=== PATIENT | male | born 1955 | race African-American/Black ===

== ENCOUNTER 2016-08-01 08:47 | Emergency (ER) | payer BC ==
[2016-08-01] MEDS ORDERED: ASPIRIN 81 MG CHEW PO STA (09:07)
[2016-08-01] MEDS ORDERED: KETOROLAC 30 MG/ML 1 ML VIAL IVP STA (09:08)
--- NOTE | 2016-08-01 09:17 | ED ---
Chest Pain HPI - General Chief Complaint: Chest Pain Stated Complaint: chest pain Time Seen by Provider: 08/01/16 08:53 Source: patient, family, RN notes reviewed Mode of arrival: ambulatory Limitations: no limitations - History of Present Illness Initial Comments: This is a 60-year-old male with a history of prostate cancer states he had the onset of sharp left-sided chest pain the last 2 days. 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 He states it increases with coughing deep breathing or certain movements. Sharp and nonradiating. He points to the left upper chest wall. He's had no recent trauma no fevers chills sweats or phlegm production. No heart disease history he is a smoker. Is no other medical problems he states he did recently see his urologist and get a hormone injection. MD Complaint: chest pain - Related Data Home Medications Medication Instructions Recorded Confirmed Naproxen Sodium [Aleve] 440 mg PO HS PRN 07/13/15 08/01/16 Abiraterone Acetate [Zytiga] 250 mg PO DAILY 08/01/16 08/01/16 Atorvastatin [Lipitor] 10 mg PO DAILY 08/01/16 08/01/16 Calcium Carbonate/Vitamin D3 1 tab PO DAILY 08/01/16 08/01/16 [Caltrate 600 Plus D3 Tablet] predniSONE 5 mg PO BID 08/01/16 08/01/16 Previous Rx's Medication Instructions Recorded Ibuprofen [Motrin] 800 mg PO Q6HR PRN #20 tab 08/01/16 Allergies Allergy/AdvReac Type Severity Reaction Status Date / Time No Known Allergies Allergy Verified 08/01/16 09:30 Review of Systems ROS Statement: Those systems with pertinent positive or pertinent negative responses have been documented in the HPI. ROS Other: All systems not noted in ROS Statement are negative. EKG Findings - EKG Results: EKG: interpreted by ERMD, sinus rhythm (Sinus rhythm with a rate of 64. Interval 146 QRS duration 90 QT/QTc is 376/387 evidence of J-point elevation in the anterior leads) Past Medical History Past Medical History: Cancer, GERD/Reflux, Hyperlipidemia, Prostate Disorder Additional Past Medical History / Comment(s): CA of Prostate 3 years ago 2011 - pt had hormone shot from Dr Hussein 01/20/14. SL BLOOD IN STOOL. History of Any Multi-Drug Resistant Organisms: None Reported Past Surgical History: Orthopedic Surgery, Prostate Surgery Additional Past Surgical History / Comment(s): PROSTATE removed 2011. Rt knee surgery 2013 Past Anesthesia/Blood Transfusion Reactions: No Reported Reaction Smoking Status: Current every day smoker Past Alcohol Use History: Occasional Additional Past Alcohol Use History / Comment(s): SMOKED 30 YEARS, 1/2 PPD. PINT OF LIQUOR EST PER WK. Past Drug Use History: None Reported - Past Family History Mother Family Medical History: Cancer General Exam - General Exam Comments Initial Comments: This is a well-developed well-nourished awake alert oriented 3 male Limitations: no limitations General appearance: alert, in no apparent distress Head exam: Present: atraumatic, normocephalic, normal inspection Eye exam: Present: normal appearance, PERRL, EOMI. Absent: scleral icterus, conjunctival injection, periorbital swelling ENT exam: Present: normal exam, mucous membranes moist Neck exam: Present: normal inspection. Absent: tenderness, meningismus, lymphadenopathy Respiratory exam: Present: normal lung sounds bilaterally, chest wall tenderness (Reproducible tenderness palpation along the left upper costal sternal costochondral margins. No step-off or crepitation). Absent: respiratory distress, wheezes, rales, rhonchi, stridor Cardiovascular Exam: Present: regular rate, normal rhythm, normal heart sounds. Absent: systolic murmur, diastolic murmur, rubs, gallop, clicks GI/Abdominal exam: Present: soft, normal bowel sounds. Absent: distended, tenderness, guarding, rebound, rigid Extremities exam: Present: normal inspection, full ROM, normal capillary refill. Absent: tenderness, pedal edema, joint swelling, calf tenderness Back exam: Present: normal inspection Neurological exam: Present: alert, oriented X3, CN II-XII intact Psychiatric exam: Present: normal affect, normal mood Skin exam: Present: warm, dry, intact, normal color. Absent: rash Course Vital Signs 08/01/16 08/01/16 08/01/16 08:58 09:01 09:13 Temperature 98 F Pulse Rate 98 92 Pulse Rate [ 68 Bilateral Sitting Radial] Respiratory 20 15 Rate Blood Pressure 127/74 140/74 O2 Sat by Pulse 99 96 Oximetry 08/01/16 10:35 Temperature Pulse Rate 73 Pulse Rate [ Bilateral Sitting Radial] Respiratory 16 Rate Blood Pressure 125/88 O2 Sat by Pulse 98 Oximetry Chest Pain MDM - MDM I did review the x-rays and reports no acute findings. The patient is some improvement but still has reproducible chest pain. I had a long discussion with him and his regarding the findings patient will be discharged on anti- inflammatories is follow-up with his doctor return when necessary the presentation is consistent with chest wall pain/costochondritis. We also did discuss smoking cessation and the risks of smoking. The conversation lasted 3.1 minutes Disposition Clinical Impression: Chest wall syndrome, Costalchondritis Disposition: HOME SELF-CARE Condition: Good Instructions: Costochondritis (ED) Prescriptions: Ibuprofen [Motrin] 800 mg PO Q6HR PRN #20 tab PRN Reason: Pain
[2016-08-01 09:36] LABS: Basophils % (A) 0 %; CHCM 32.7; Eosinophils # (A) 0.1 k/uL (0-0.7); Eosinophils % (A) 1 %; HCT 39.2 % (39.0-53.0); HDW 2.41; HGB 12.8 gm/dL (13.0-17.5); Luc # (Auto) 0.23; Luc % (Auto) 2; Lymphocytes # (A) 2.8 k/uL (1.0-4.8); Lymphocytes % (A) 24 %; MCHC 32.6 g/dL (31.0-37.0); MCV 92.3 fL (80.0-100.0); Mean Platelet Volume 6.6; Monocytes # (A) 0.5 k/uL (0-1.0); Monocytes % (A) 4 %; Neutrophils # (A) 8.1 k/uL (1.3-7.7); Neutrophils % (A) 69 %; RBC 4.25 m/uL (4.30-5.90); RDW 13.9 % (11.5-15.5); WBC 11.7 k/uL (3.8-10.6); WBC (Perox) 12.21
[2016-08-01 09:49] LABS: Partial Thromboplastin Time 26.5 sec (22.0-30.0); Prothrombin Time 10.2 sec (9.0-12.0)
[2016-08-01 09:59] LABS: ALT 28 U/L (21-72); AST 24 U/L (17-59); Alkaline Phosphatase 87 U/L (38-126); Amylase 65 U/L (30-110); Anion Gap 12 mmol/L; Blood Urea Nitrogen 27 mg/dL (9-20); Calcium 10.6 mg/dL (8.4-10.2); Carbon Dioxide 23 mmol/L (22-30); Chloride 109 mmol/L (98-107); Glucose 84 mg/dL (74-99); Magnesium 1.7 mg/dL (1.6-2.3); Non-African American GFR(MDRD) >60 (>60 ml/min/1.73 sqM); Potassium 4.4 mmol/L (3.5-5.1); Sodium 144 mmol/L (137-145); Total Bilirubin 0.9 mg/dL (0.2-1.3); Total Protein 7.3 g/dL (6.3-8.2)
[2016-08-01 10:01] LABS: Creatine Kinase 232 U/L (55-170)
--- NOTE | 2016-08-01 10:01 | XR ---
EXAMINATION TYPE: XR chest 2V DATE OF EXAM: 08/01/2016 9:48 AM COMPARISON: Right ribs 04 March 2016, CT chest 28 Sep 2015 HISTORY: Chest pain TECHNIQUE: Frontal and lateral views of the chest are obtained on 3 images. FINDINGS: There is no focal air space opacity, pleural effusion, or pneumothorax seen. The cardiac silhouette size is within normal limits. Prominent lung volumes compatible with COPD. Apical bullous disease present bilaterally. There are overlying cardiac leads. The osseous structures are intact. IMPRESSION: No acute cardiopulmonary process.
[2016-08-01 10:15] LABS: Troponin I <0.012 ng/mL (0.000-0.034)
[2016-08-01 10:26] LABS: Creatine Kinase MB 3.4 ng/mL (0.0-2.4)
[2016-08-01] MEDS ORDERED: SODIUM CHLORIDE 0.9% 1,000 ML IV STA (10:30)
[2016-08-01 10:36] VITALS: RESP 16
[2016-08-01 11:36] VITALS: BP 149/72; PULSE 69; TEMP 98.7
== END 2016-08-01 11:36 | disposition home or self-care (01) ==
LOC: EC 08:47
DX: M94.0 Chondrocostal junction syndrome [Tietze] (principal); E78.5 Hyperlipidemia, unspecified; F17.200 Nicotine dependence, unspecified, uncomplicated; Z79.899 Other long term (current) drug therapy; Z85.46 Personal history of malignant neoplasm of prostate; Z90.79 Acquired absence of other genital organ(s)
CPT/HCPCS: 36415; 93005; 85379; 83880; 80053; 82150; 82550; 82553; 83690; 83735; 84484; 85025; 85610; 85730; 71020; 99285; 96374; 96361; J1885

== ENCOUNTER → 2016-11-07 | Outpatient (CLI) | payer BC ==
--- NOTE | 2016-11-07 09:17 | CT ---
EXAMINATION TYPE: CT chest, abdomen w con DATE OF EXAM: 11/07/2016 COMPARISON: Previous study dated 09/28/1960. HISTORY: Patient has no complaints at time of service. Abnormal CXR at doctor's office. CT DLP: 328.3 mGycm Automated exposure control for dose reduction was used. CONTRAST: CT scan of the chest is performed with IV Contrast, patient injected with 100 mL of Omnipaque 300. FINDINGS: There are bullous changes in the apices, greater on the right than the left. There is a que stionable 3.6 mm lesion in the apical posterior segment of the left upper lobe, best seen on image 13 . No other parenchymal lesions are seen. Low-density lesion along the right hemidiaphragm has decreased in size from 7.3 x 4.4 x 7.4 cm to 5 x 2.9 x 5.2 cm. On today's examination peripheral enhancement. There is some internal vascularity. There is bilateral gynecomastia. There is no significant axillary, mediastinal or hilar adenopathy. There is no pleural or pericardial fluid. The heart is not enlarged. Within the abdomen, the liver, spleen and gallbladder are normal. Both adrenal glands are normal. Both kidneys demonstrate function and appear morphologically normal. The pancreas is unremarkable. The infrarenal abdominal aorta is aneurysmal measuring 3.3 cm. There is mild hypertrophic spondylosis within the spine. IMPRESSION: 1. CONTINUING REGRESSION OF THE PATIENT'S LOW ATTENUATING LESION AT THE RIGHT LUNG BASE. 2. EMPHYSEMATOUS CHANGES WITHIN THE LUNGS. 3. 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 4. BILATERAL GYNECOMASTIA. 5. INFRARENAL ABDOMINAL AORTIC ANEURYSM. 6. DEGENERATIVE CHANGES WITHIN THE SPINE.
== END | disposition home or self-care (01) ==
LOC: RADCTMAIN 08:35
PROVIDERS: ATTEND Internal Medicine Critical Care Medicine
DX: J43.9 Emphysema, unspecified (principal); R91.1 Solitary pulmonary nodule; N62 Hypertrophy of breast
CPT/HCPCS: 71260; Q9967

== ENCOUNTER → 2017-02-20 | Outpatient (CLI) | payer BC ==
--- NOTE | 2017-02-20 14:16 | NM ---
EXAMINATION TYPE: NM bone scan whole body DATE OF EXAM: 02/20/2017 COMPARISON: 02/16/2016 HISTORY: Prostate cancer Delayed whole-body scanning was performed following the injection of 26.9 mCi Tc 99m MDP. Images acq uired 3 hours post injection. FINDINGS: There now is extensive abnormal uptake throughout the rib cage, left femur, pelvic bones, a nd vertebral column. Also suspicious for metastases. Abnormal uptake involving the calvarium is nonspecific. Correlate with x-ray. Abnormal uptake involv ing the shoulder may be post arthritic although metastases not excluded. IMPRESSION: Findings suspicious for diffuse metastases.
== END | disposition home or self-care (01) ==
LOC: RADNMMAIN 10:19
PROVIDERS: ATTEND Urology
DX: C61 Malignant neoplasm of prostate (principal)
CPT/HCPCS: 78306; A9503

== ENCOUNTER → 2017-05-12 | Outpatient (CLI) | payer BC ==
[2017-05-12 15:26] LABS: Blood Urea Nitrogen 22 mg/dL (9-20)
--- NOTE | 2017-05-12 17:21 | CT ---
EXAMINATION TYPE: CT ChestAbdPelvis w con DATE OF EXAM: 05/12/2017 COMPARISON: 11/07/2016, 03/25/2016 HISTORY: Follow up for prostate CA. CT DLP: 1265 mGycm Automated exposure control for dose reduction was used. CONTRAST: CT scan of the chest, abdomen and pelvis is performed with Oral Contrast and with IV Contrast, patien t injected with 100 mL of Omnipaque 300. FINDINGS: LUNGS: Bullous changes are noted involving the lung apices greater on the right. No pneumothorax or c onsolidation. No pleural effusion. No focal pneumonia. There is reduction in the right pleural-based mass which measures 2.5 x 2.1 cm and previously measured 5 x 2.9 cm. MEDIASTINUM: There are no greater than 1 cm hilar or mediastinal lymph nodes. No pericardial effusi on is seen. OTHER: No additional significant abnormality is seen. LIVER/GB: No significant abnormality is appreciated. PANCREAS: No significant abnormality is seen. SPLEEN: No significant abnormality is seen. ADRENALS: No significant abnormality is seen. KIDNEYS: No significant abnormality is seen. BOWEL: No significant abnormality is seen. LYMPH NODES: There is pathologic adenopathy in the retroperitoneum and periaortic region with the lar gest lymph node on the right measuring 1.1 cm and on the left measuring 1.3 cm. Within the pelvis the re remains pathologic adenopathy particularly against the right pelvic sidewall with the largest lymp h node measuring a short axis of 1.7 cm. This is reduced in size relative measured 2.4 cm. Additional small lymph nodes are seen bilaterally in the iliac chain. OSSEOUS STRUCTURES: There are diffuse sclerotic changes involving the visualized osseous structures c ompatible with widespread bony metastases. OTHER: There is ectasia of the aorta measures a maximal dimension of 2.9 cm. Ectasia of the proximal iliac vasculature also noted. IMPRESSION: 1. Widespread bony metastasis involving virtually every osseous structure. 2. Pelvic sidewall adenopathy is reduced in size from previous exam. 3. Retroperitoneal adenopathy is stable. 4. Reduction in the right-sided lower lobe pleural-based mass which measures 2.5 x 2 cm and previousl y measured 5 x 2.9 cm.
== END | disposition home or self-care (01) ==
LOC: RADCTMAIN 14:52
PROVIDERS: ATTEND Internal Medicine Hematology & Oncology
DX: C79.51 Secondary malignant neoplasm of bone (principal); C61 Malignant neoplasm of prostate; R59.0 Localized enlarged lymph nodes; J98.4 Other disorders of lung
CPT/HCPCS: 82565; 84520; 71260; 74177; 36415; Q9967

== ENCOUNTER → 2017-06-03 | Outpatient (CLI) | payer BC ==
--- NOTE | 2017-06-03 16:04 | NM ---
EXAMINATION TYPE: NM bone scan whole body DATE OF EXAM: 06/03/2017 COMPARISON: Prior bone scan 02/20/2017, CT chest abdomen pelvis 05/12/2017 HISTORY: Prostate cancer Delayed whole-body scanning was performed following the injection of 26.4 mCi Tc 99m MDP. Images acq uired 3 hours post injection. FINDINGS: Diffuse areas of increased radio pharmaceutical uptake are somewhat less conspicuous, less well-defin ed. Sacral uptake may be a slight increased activity is compared to prior. Soft tissue uptake is not well seen, findings could be indicative of SuperScan. IMPRESSION: Metastatic disease as described, findings compatible with SuperScan.
== END | disposition home or self-care (01) ==
LOC: RADNMMAIN 10:21
PROVIDERS: ATTEND Internal Medicine Hematology & Oncology
DX: Z03.89 Encounter for observation for other suspected diseases and conditions ruled out (principal); C61 Malignant neoplasm of prostate
CPT/HCPCS: 78306; A9503

== ENCOUNTER 2017-07-03 10:18 | Emergency (ER) | payer BC, OTHER ==
[2017-07-03] MEDS ORDERED: RX INFO: IV CONTRAST WAS GIVEN 1 EACH MISC MISCELLANE PRN (10:43)
[2017-07-03] MEDS ORDERED: HYDROmorphone 0.5 MG/0.5 ML SYRINGE IVP STA ×2 (10:43→11:29)
[2017-07-03] MEDS ORDERED: SODIUM CHLORIDE 0.9% 1,000 ML IV STA (10:43)
--- NOTE | 2017-07-03 10:59 | ED ---
General Adult HPI - General Chief complaint: Neck Pain/Injury Stated complaint: Back pain Time Seen by Provider: 07/03/17 10:30 Source: patient, RN notes reviewed Mode of arrival: ambulatory Limitations: no limitations - History of Present Illness Initial comments: 61-year-old male presents to the emergency department with a chief complaint of back pain and abdominal pain. He's had this for about 3 days. He has a history of prostate cancer that has metastases to the bone. He states she's never had pain like this associated with his metastases. He went to [facility] and they started him on muscle relaxers and steroids. He states that his pain just keeps continuing in the medications that they gave him do not seem to be helping them. They were concerned due to the patient's continued pain so he thought that he should be seen. He states any movement or touch seems to make it worse. He states he goes from the left to right in the lower abdomen and back. He denies any changes in urination.Patient denies any recent fever, chills, shortness of breath, chest pain, nausea vomiting, numbness or tingling, dysuria or hematuria, constipation or diarrhea, headaches or visual changes, or any other current symptoms. - Related Data Home Medications Medication Instructions Recorded Confirmed Cyclobenzaprine [Flexeril] 10 mg PO TID PRN 07/03/17 07/03/17 Multivitamins, Thera [Multivitamin 1 tab PO DAILY 07/03/17 07/03/17 (formulary)] predniSONE 20 mg PO BID 07/03/17 07/03/17 Previous Rx's Medication Instructions Recorded Hydrocodone/Acetaminophen [Leander 1 each PO Q6HR PRN #20 tab 07/03/17 5-325] Allergies Allergy/AdvReac Type Severity Reaction Status Date / Time No Known Allergies Allergy Verified 07/03/17 10:53 Review of Systems ROS Statement: Those systems with pertinent positive or pertinent negative responses have been documented in the HPI. ROS Other: All systems not noted in ROS Statement are negative. Past Medical History Past Medical History: Cancer, GERD/Reflux, Hyperlipidemia, Prostate Disorder Additional Past Medical History / Comment(s): CA of Prostate 3 years ago 2011 - pt had hormone shot from Dr Hussein 01/20/14. chemo therapy last treatment . History of Any Multi-Drug Resistant Organisms: None Reported Past Surgical History: Orthopedic Surgery, Prostate Surgery Additional Past Surgical History / Comment(s): PROSTATE removed 2011. Rt knee surgery 2013 Past Anesthesia/Blood Transfusion Reactions: No Reported Reaction Past Psychological History: No Psychological Hx Reported Smoking Status: Current every day smoker Past Alcohol Use History: Occasional Past Drug Use History: None Reported - Past Family History Mother Family Medical History: Cancer General Exam - General Exam Comments Initial Comments: General: The patient is awake and alert, in no distress, and does not appear acutely ill. Eye: Pupils are equal, round and reactive to light, extra-ocular movements are intact; there is normal conjunctiva bilaterally. No signs of icterus. Ears, nose, mouth and throat: There are moist mucous membranes. Neck: The neck is supple, there is no tenderness. Cardiovascular: There is a regular rate and rhythm. No murmur, rub or gallop is appreciated. Respiratory: Lungs are clear to auscultation, respirations are non-labored, breath sounds are equal. No wheezes, stridor, rales, or rhonchi. Gastrointestinal: Soft, non-distended, some lower quadrant tenderness of the abdomen without masses or organomegaly noted. There is no rebound or guarding present. No CVA tenderness. Bowel sounds are unremarkable. Back: There is no tenderness to palpation in the midline. There is no obvious deformity. No rashes noted. Musculoskeletal: Normal ROM, no tenderness, There is no pedal edema. There is no calf tenderness or swelling. Sensation intact. Pulses equal bilaterally 2+. Neurological: CN II-XII intact, There are no obvious motor or sensory deficits. Coordination appears grossly intact. Speech is normal. Skin: Skin is warm and dry and no rashes or lesions are noted. Psychiatric: Cooperative, appropriate mood & affect, normal judgment. Limitations: no limitations Course Vital Signs 07/03/17 07/03/17 07/03/17 10:23 11:40 12:49 Temperature 98.6 F Pulse Rate 96 88 89 Respiratory 18 16 16 Rate Blood Pressure 124/68 138/72 164/79 O2 Sat by Pulse 98 97 98 Oximetry Medical Decision Making - Medical Decision Making 61-year-old male presents for back pain. This time patient's lab work and CT was reviewed. He is currently on steroids which is most likely why he is elevated white blood cell. CAT scan is showing bony metastases which the patient doesn't know about. Dr. Carballo was contacted by Dr. vincent and is agreement discharged home on additional pain control. At this time we will start patient pain meds for home. We did discuss follow-up we discussed return parameters all questions. Patient stated the understood and in agreement with management this plan. All questions have been answered. They will be discharged. - Lab Data Result diagrams: 07/03/17 11:00 07/03/17 11:00 Lab Results 07/03/17 07/03/17 07/03/17 Range/Units 11:00 11:00 11:00 WBC 16.2 H (3.8-10.6) k/uL RBC 3.15 L (4.30-5.90) m/uL Hgb 8.6 L (13.0-17.5) gm/dL Hct 26.9 L (39.0-53.0) % MCV 85.4 (80.0-100.0) fL MCH 27.3 (25.0-35.0) pg MCHC 31.9 (31.0-37.0) g/dL RDW 18.3 H (11.5-15.5) % Plt Count 353 (150-450) k/uL Neutrophils % (Manual) 80 % Band Neutrophils % 2 % Lymphocytes % (Manual) 11 % Monocytes % (Manual) 7 % Metamyelocytes % 2 % Neutrophils # (Manual) 13.20 H (1.3-7.7) k/uL Lymphocytes # (Manual) 1.78 (1.0-4.8) k/uL Monocytes # (Manual) 1.13 H (0-1.0) k/uL Metamyelocytes # (Man) 0.32 H (0) k/uL Nucleated RBCs 2 H (0-0) /100 WBC Hypochromasia Slight Poikilocytosis Slight Anisocytosis Slight PT (9.0-12.0) sec INR (<1.2) APTT (22.0-30.0) sec Sodium 141 (137-145) mmol/L Potassium 4.3 (3.5-5.1) mmol/L Chloride 110 H (98-107) mmol/L Carbon Dioxide 22 (22-30) mmol/L Anion Gap 9 mmol/L BUN 12 (9-20) mg/dL Creatinine 0.70 (0.66-1.25) mg/dL Est GFR (MDRD) Af Amer >60 (>60 ml/min/1.73 sqM) Est GFR (MDRD) Non-Af >60 (>60 ml/min/1.73 sqM) Glucose 114 H (74-99) mg/dL Plasma Lactic Acid Keith 1.1 (0.7-2.0) mmol/L Calcium 9.0 (8.4-10.2) mg/dL Total Bilirubin 0.4 (0.2-1.3) mg/dL AST 57 (17-59) U/L ALT 43 (21-72) U/L Alkaline Phosphatase 226 H (38-126) U/L Total Protein 6.6 (6.3-8.2) g/dL Albumin 3.7 (3.5-5.0) g/dL Amylase 47 (30-110) U/L Lipase 48 (23-300) U/L Urine Color Urine Appearance (Clear) Urine pH (5.0-8.0) Ur Specific [place] (1.001-1.035) Urine Protein (Negative) Urine Glucose (UA) (Negative) Urine Ketones (Negative) Urine Blood (Negative) Urine Nitrite (Negative) Urine Bilirubin (Negative) Urine Urobilinogen (<2.0) mg/dL Ur Leukocyte Esterase (Negative) 07/03/17 07/03/17 Range/Units 11:00 11:00 WBC (3.8-10.6) k/uL RBC (4.30-5.90) m/uL Hgb (13.0-17.5) gm/dL Hct (39.0-53.0) % MCV (80.0-100.0) fL MCH (25.0-35.0) pg MCHC (31.0-37.0) g/dL RDW (11.5-15.5) % Plt Count (150-450) k/uL Neutrophils % (Manual) % Band Neutrophils % % Lymphocytes % (Manual) % Monocytes % (Manual) % Metamyelocytes % % Neutrophils # (Manual) (1.3-7.7) k/uL Lymphocytes # (Manual) (1.0-4.8) k/uL Monocytes # (Manual) (0-1.0) k/uL Metamyelocytes # (Man) (0) k/uL Nucleated RBCs (0-0) /100 WBC Hypochromasia Poikilocytosis Anisocytosis PT 9.7 (9.0-12.0) sec INR 1.0 (<1.2) APTT 23.1 (22.0-30.0) sec Sodium (137-145) mmol/L Potassium (3.5-5.1) mmol/L Chloride (98-107) mmol/L Carbon Dioxide (22-30) mmol/L Anion Gap mmol/L BUN (9-20) mg/dL Creatinine (0.66-1.25) mg/dL Est GFR (MDRD) Af Amer (>60 ml/min/1.73 sqM) Est GFR (MDRD) Non-Af (>60 ml/min/1.73 sqM) Glucose (74-99) mg/dL Plasma Lactic Acid Keith (0.7-2.0) mmol/L Calcium (8.4-10.2) mg/dL Total Bilirubin (0.2-1.3) mg/dL AST (17-59) U/L ALT (21-72) U/L Alkaline Phosphatase (38-126) U/L Total Protein (6.3-8.2) g/dL Albumin (3.5-5.0) g/dL Amylase (30-110) U/L Lipase (23-300) U/L Urine Color Yellow Urine Appearance Clear (Clear) Urine pH 5.5 (5.0-8.0) Ur Specific [place] 1.037 H (1.001-1.035) Urine Protein Trace H (Negative) Urine Glucose (UA) Negative (Negative) Urine Ketones Negative (Negative) Urine Blood Negative (Negative) Urine Nitrite Negative (Negative) Urine Bilirubin Negative (Negative) Urine Urobilinogen <2.0 (<2.0) mg/dL Ur Leukocyte Esterase Negative (Negative) Disposition Clinical Impression: Bony metastasis, Back pain Disposition: HOME SELF-CARE Condition: Stable Instructions: Acute Low Back Pain (ED) Additional Instructions: Please use medication as discussed. Please follow up with family doctor if symptoms have not improved over the next two days. Please return to the emergency room if your symptoms increase or worsen or for any other concerns. Prescriptions: Hydrocodone/Acetaminophen [Leander 5-325] 1 each PO Q6HR PRN #20 tab PRN Reason: Pain Referrals: Shayna De MD [Primary Care Provider] - 1-2 days Time of Disposition: 14:51
[2017-07-03 11:32] LABS: ALT 43 U/L (21-72); AST 57 U/L (17-59); Albumin 3.7 g/dL (3.5-5.0); Alkaline Phosphatase 226 U/L (38-126); Amylase 47 U/L (30-110); Anion Gap 9 mmol/L; Blood Urea Nitrogen 12 mg/dL (9-20); Carbon Dioxide 22 mmol/L (22-30); Chloride 110 mmol/L (98-107); Glucose 114 mg/dL (74-99); Lipase 48 U/L (23-300); Potassium 4.3 mmol/L (3.5-5.1); Sodium 141 mmol/L (137-145); Total Bilirubin 0.4 mg/dL (0.2-1.3); Total Protein 6.6 g/dL (6.3-8.2)
[2017-07-03 11:41] VITALS: RESP 16
[2017-07-03 11:43] LABS: Partial Thromboplastin Time 23.1 sec (22.0-30.0); Prothrombin Time 9.7 sec (9.0-12.0)
[2017-07-03 12:03] LABS: Anisocytosis Slight; HCT 26.9 % (39.0-53.0); HGB 8.6 gm/dL (13.0-17.5); Hypochromasia Slight; MCH 27.3 pg (25.0-35.0); MCHC 31.9 g/dL (31.0-37.0); MCV 85.4 fL (80.0-100.0); Mean Platelet Volume 6.9; Platelet Count 353 k/uL (150-450); Poikilocytosis Slight; RBC 3.15 m/uL (4.30-5.90); RDW 18.3 % (11.5-15.5)
--- NOTE | 2017-07-03 12:20 | CT ---
EXAMINATION TYPE: CT abdomen pelvis w con DATE OF EXAM: 07/03/2017 COMPARISON: May 12, 2017 HISTORY: Patient complains of generalized pelvic pain. History of prostate carcinoma CT DLP: 600.8 mGycm CONTRAST: CT scan of the abdomen and pelvis is performed without Oral Contrast and with IV Contrast, patient in jected with 100 mL of Omnipaque 300. FINDINGS: LUNG BASES-: Right basilar pleural-based mass measures 3.4 x 1.2 cm versus 2.5 x 2.0 cm previously. LIVER/GB: No calcified gallstones. There is evidence of hepatomegaly. Areas of mildly heterogenous enhancement within the liver are nonspecific. No space occupying hepatic lesion. Biliary tree is of normal caliber. PANCREAS: No inflammation. No distinct mass. SPLEEN: No splenic enlargement. No lesion seen. ADRENALS: No nodule. No thickening. KIDNEYS/BLADDER: No hydronephrosis. No nephrolithiasis. No distinct solid renal mass. Cyst upper p ole left kidney. Small hiatal hernia noted. Renal vascular calcifications. Urinary bladder grossly un remarkable. BOWEL: Normal appendix. Normal bowel caliber. No inflammation. GENITAL ORGANS: No gross abnormality. LYMPH NODES: Stable periaortic adenopathy and pelvic sidewall adenopathy. AORTA: Infrarenal abdominal aortic aneurysm measuring 3.2 cm. Ectasia of the common iliac arteries. OSSEOUS STRUCTURES: Diffuse blastic metastases seen involving virtually all osseous structures within the [id number]. OTHER: No significant additional abnormality is seen. IMPRESSION: 1. No acute process identified at this time. 2. Diffuse blastic bony metastases. 3. Essentially stable pleural-based mass right lower lobe. 4. Hepatomegaly with mild heterogenous enhancement of the liver. 5. Pelvic sidewall adenopathy is stable. Para-aortic adenopathy is stable as well.
[2017-07-03] MEDS ORDERED: MORPHINE SULFATE 4 MG/ML SYRINGE IVP STA ×3 (12:22→14:58)
[2017-07-03 12:28] LABS: Band Neutrophils % 2 %; Lymphocytes # (M) 1.78 k/uL (1.0-4.8); Metamyelocytes # (M) 0.32 k/uL (0); Metamyelocytes % 2 %; Monocytes # (M) 1.13 k/uL (0-1.0); Neutrophils % (M) 80 %; Nucleated Red Blood Cells 2 /100 WBC (0-0); Total Cells Counted 200; WBC 16.2 k/uL (3.8-10.6)
[2017-07-03 13:02] LABS: Appearance,Urine Clear (Clear); Bilirubin,Urine Negative (Negative); Blood,Urine Negative (Negative); Color,Urine Yellow; Glucose,Urine (UA) Negative (Negative); Ketones,Urine Negative (Negative); Leukocyte Esterase,Urine Negative (Negative); PH, Urine 5.5 (5.0-8.0); Protein,Urine Trace (Negative); Specific Gravity,Urine 1.037 (1.001-1.035); Urobilinogen,Urine <2.0 mg/dL (<2.0)
[2017-07-03] MEDS ORDERED: MORPHINE SULFATE 2 MG/ML SYRINGE IVP STA (14:56)
[2017-07-03 15:14] VITALS: BP 145/74; PULSE 93; TEMP 97.4
== END 2017-07-03 15:13 | disposition home or self-care (01) ==
LOC: EC 10:18
DX: C79.51 Secondary malignant neoplasm of bone (principal); M54.9 Dorsalgia, unspecified; Z85.46 Personal history of malignant neoplasm of prostate; F17.200 Nicotine dependence, unspecified, uncomplicated; Z79.52 Long term (current) use of systemic steroids; Z90.79 Acquired absence of other genital organ(s); Z92.21 Personal history of antineoplastic chemotherapy
CPT/HCPCS: 99284 ×2; 96374 ×2; 96375 ×2; 96376 ×3; 96361 ×2; 36415; 80053; 82150; 83605; 83690; 85025; 85610; 85730; 81003; 87040; 87086; 74177; J2270 ×2; Q9967; J1170

== ENCOUNTER → 2017-07-10 | Outpatient (CLI) | payer BC ==
--- NOTE | 2017-07-10 09:57 | MR ---
EXAMINATION TYPE: MR pelvis wo con DATE OF EXAM: 07/10/2017 COMPARISON: CT scan 07/04/2007 HISTORY: Prostate cancer and pelvic pain Standard multiplanar, multisequence MRI departmental protocol Multiplanar, multisequence images of the pelvis were acquired. FINDINGS: There is diffuse abnormal signal replacement of the marrow within all structures visualized with the most marked findings involving pelvic bones with near complete replacement compatible with widespread bony metastasis. There are stable appearing pelvic adenopathy along the sidewall measuring a short axis on the right o f 1.7 cm and measuring short axis on the left of 1.2 cm. The bladder is decompressed and limited in evaluation. No obvious abnormality noted. Findings suggest mattie of previous prostatectomy noted. No abnormal free fluid. No soft tissue mass. There is a 3 cm infrarenal abdominal aortic aneurysm. Fi ndings stable. IMPRESSION: 1. Diffuse marrow replacement of all the visualized osseous structures with the most marked findings involving the pelvic bones which demonstrate near complete replacement compatible with widespread bon y metastases. 2. Pelvic sidewall adenopathy stable. 3. 3 cm infrarenal abdominal aortic aneurysm stable.
== END ==
LOC: RADMRIMAIN 07:56
PROVIDERS: ATTEND Internal Medicine Hematology & Oncology
DX: C61 Malignant neoplasm of prostate (principal); I71.4 Abdominal aortic aneurysm, without rupture
CPT/HCPCS: 72195

== ENCOUNTER → 2017-07-11 | Outpatient (CLI) | payer BC ==
--- NOTE | 2017-07-11 23:35 | MR ---
EXAMINATION TYPE: MR brain/lspine wo/w con DATE OF EXAM: 07/11/2017 COMPARISON: NONE HISTORY: Back pain, Hx of Prostate CA 10years ago headache CONTRAST: Standard multiplanar, multisequence MRI departmental protocol utilizing 7.5 mL intravenous Gadavist g adolinium contrast. FINDINGS: Brain There is mild cerebral atrophy appropriate for age. There is no mass effect nor midline shift. There is no sign of intracranial hemorrhage. Ventricles have normal size. There is no evidence of cortical infarct. The brainstem is intact. Corpus callosum is intact. There is no evidence of a sellar mass. T he calvarium appears intact. The contrast images show no pathologic enhancement. Lumbar spine. The lumbar vertebra have normal alignment. There is mild narrowing of lumbar disc spaces at L3-4 L4-5 . Lumbar nerve roots appear normal. There is no compression fracture. The neural foramina are fairly well-maintained. There is epidural fat in the spinal canal and some lipomatosis. The posterior elemen ts are intact. I see no focal bone destruction. There are however multiple areas of slight ring enhan cement involving the lumbar vertebra and first and second sacral vertebra. There is no lumbar paraspi nal mass. Posterior elements appear intact. There appears to be also some ring-enhancing lesion in th e right ilium. IMPRESSION: Brain MR scan of the brain is within normal limits. No evidence of metastatic disease. Lumbar spine. There is epidural lipomatosis and narrowing of the spinal canal at the L4-L5 level. No compression fr acture. There are multiple areas that appear to be ring-enhancing bony lesions within the lumbar vert ebral bodies and also S1 and S2 and the right ilium suggestive of metastatic disease. This is also co nsistent with the findings on the recent CT scan of 07/03/2017 that shows extensive osteoblastic change . There is a relative spinal stenosis at L5 level due to the epidural fat.
== END | disposition home or self-care (01) ==
LOC: RADMRIMAIN 18:37
PROVIDERS: ATTEND Internal Medicine Hematology & Oncology
DX: M48.061 Spinal stenosis, lumbar region without neurogenic claudication (principal); E88.2 Lipomatosis, not elsewhere classified; C61 Malignant neoplasm of prostate; G51.3 Clonic hemifacial spasm
CPT/HCPCS: 70553; 72158; A9581

== ENCOUNTER 2017-07-23 08:31 | Inpatient (IN) | payer BC ==
[2017-07-23] MEDS ORDERED: SODIUM CHLORIDE 0.9% 1,000 ML IV STA (09:07)
[2017-07-23] MEDS ORDERED: ONDANSETRON 4 MG/2 ML VIAL IVP STA (09:19)
[2017-07-23] MEDS ORDERED: MORPHINE SULFATE 4 MG/ML SYRINGE IVP STA ×2 (09:19→12:25)
[2017-07-23] MEDS ORDERED: MORPHINE SULFATE/PF 10MG/10ML VL IVP STA ×3 (09:21→13:01)
[2017-07-23 09:45] LABS: Albumin 2.8 g/dL (3.5-5.0); Calcium 8.2 mg/dL (8.4-10.2); Potassium 5.2 mmol/L (3.5-5.1); Total Bilirubin 0.7 mg/dL (0.2-1.3); Total Protein 5.3 g/dL (6.3-8.2)
[2017-07-23 09:51] LABS: Anisocytosis Moderate; HCT 29.8 % (39.0-53.0); HGB 9.6 gm/dL (13.0-17.5); Hypochromasia Slight; MCH 26.8 pg (25.0-35.0); MCHC 32.1 g/dL (31.0-37.0); MCV 83.5 fL (80.0-100.0); Mean Platelet Volume 7.4; Microcytosis Slight; Poikilocytosis Slight; RBC 3.57 m/uL (4.30-5.90); RDW 20.2 % (11.5-15.5)
--- NOTE | 2017-07-23 09:51 | XR ---
Abdomen HISTORY: Pain, nausea and vomiting, prostate cancer Frontal view of the abdomen submitted on 2 images, correlation CT abdomen pelvis 07/03/2017 Bones appear somewhat sclerotic in the pelvis and spine. Lung bases are clear. Multiple air-fluid lev els are present without bowel distention. Probable vascular calcifications are noted. IMPRESSION: Findings could represent enteritis or ileus, follow-up as indicated. Metastatic disease t o the bones.
[2017-07-23 10:09] LABS: Platelet Count 158 k/uL (150-450)
--- NOTE | 2017-07-23 10:33 | ED ---
Abdominal Pain HPI <AustinCarmine - Last Filed: 07/23/17 13:58> - General Source: patient, RN notes reviewed, old records reviewed Mode of arrival: wheelchair Limitations: no limitations <Meredith Simon - Last Filed: 07/23/17 14:13> - General Chief Complaint: Abdominal Pain Stated Complaint: abdominal, back pain, loss of hearing in rt ear Time Seen by Provider: 07/23/17 08:57 - History of Present Illness Initial Comments: This patient is 59-year-old male history of prostate cancer with metastases presents emergency by male with lower abdominal pain, fullness and cramping. Patient reports that the pain radiates to his back. Patient states that he is undergoing chemotherapy and radiation. Patient states that he had radiation 2 weeks ago. Patient states that he is been having very little bowel movements. He's been taking stool softeners with little relief. Patient reports he is feeling feverish and chilled. He denies any chest pain shortness of breath. He reports he had normal urination. He states that he has not been eating or drinking well. (Meredith Simon) - Related Data Home Medications Medication Instructions Recorded Confirmed Multivitamins, Thera [Multivitamin 1 tab PO DAILY 07/03/17 07/23/17 (formulary)] Acetaminophen Tab [Tylenol Tab] 325 - 650 mg PO Q4H PRN 07/23/17 07/23/17 Calcium Carbonate/Vitamin D3 1 tab PO DAILY 07/23/17 07/23/17 [Caltrate 600 Plus D3 Tablet] Cyclobenzaprine [Flexeril] 5 mg PO TID PRN 07/23/17 07/23/17 Dexamethasone [Hexadrol] 4 mg PO TID 07/23/17 07/23/17 Naproxen Sodium [Aleve] 220 - 440 mg PO DAILY PRN 07/23/17 07/23/17 Prochlorperazine [Compazine] 10 mg PO Q6H PRN 07/23/17 07/23/17 fentaNYL 25MCG/HR PATCH [Duragesic 1 patch TRANSDERM Q72H 07/23/17 07/23/17 25MCG/HR] Allergies Allergy/AdvReac Type Severity Reaction Status Date / Time No Known Allergies Allergy Verified 07/23/17 08:51 Review of Systems ROS Other: All systems not noted in ROS Statement are negative. <Carmine Austin - Last Filed: 07/23/17 13:58> ROS Other: All systems not noted in ROS Statement are negative. <AuroraMeredith - Last Filed: 07/23/17 14:13> ROS Statement: Those systems with pertinent positive or pertinent negative responses have been documented in the HPI. Past Medical History Past Medical History: Cancer, GERD/Reflux, Hyperlipidemia, Prostate Disorder Additional Past Medical History / Comment(s): CA of Prostate 3 years ago 2011 - pt had hormone shot from Dr Hussein 01/20/14. chemo therapy last treatment 06/26 History of Any Multi-Drug Resistant Organisms: None Reported Past Surgical History: Orthopedic Surgery, Prostate Surgery Additional Past Surgical History / Comment(s): PROSTATE removed 2011. Rt knee surgery 2012 Past Anesthesia/Blood Transfusion Reactions: No Reported Reaction Past Psychological History: No Psychological Hx Reported Smoking Status: Current every day smoker Past Alcohol Use History: Occasional Past Drug Use History: None Reported - Past Family History Mother Family Medical History: Cancer <AuroraMeredith - Last Filed: 07/23/17 14:13> General Exam <Carmine Austin - Last Filed: 07/23/17 13:58> Limitations: no limitations General appearance: alert, in no apparent distress Head exam: Present: atraumatic, normocephalic, normal inspection Eye exam: Present: normal appearance, PERRL, EOMI. Absent: scleral icterus, conjunctival injection, periorbital swelling ENT exam: Present: normal exam, mucous membranes moist Neck exam: Present: normal inspection. Absent: tenderness, meningismus, lymphadenopathy Respiratory exam: Present: normal lung sounds bilaterally. Absent: respiratory distress, wheezes, rales, rhonchi, stridor Cardiovascular Exam: Present: regular rate, normal rhythm, normal heart sounds. Absent: systolic murmur, diastolic murmur, rubs, gallop, clicks GI/Abdominal exam: Present: soft, tenderness (Significant abdominal tenderness. Guarding to palpation in the right lower quadrant left lower quadrant.), guarding (Right lower quadrant), normal bowel sounds. Absent: distended, rebound, rigid Extremities exam: Present: normal inspection, full ROM, normal capillary refill. Absent: tenderness, pedal edema, joint swelling, calf tenderness Back exam: Present: normal inspection Neurological exam: Present: alert, oriented X3, CN II-XII intact Psychiatric exam: Present: normal affect, normal mood Skin exam: Present: warm, dry, intact, normal color. Absent: rash <Meredith Simon - Last Filed: 07/23/17 14:13> - General Exam Comments Initial Comments: This is a 61-year-old male. Patient appears very weak and frail. (Meredith Simon) Course <Carmine Austin - Last Filed: 07/23/17 13:58> <Meredith Simon - Last Filed: 07/23/17 14:13> Vital Signs 07/23/17 07/23/17 07/23/17 08:33 11:36 12:19 Temperature 98.4 F 98.6 F Pulse Rate 118 H 116 H 112 H Respiratory 20 18 18 Rate Blood Pressure 118/59 132/66 132/65 O2 Sat by Pulse 98 94 L 98 Oximetry 07/23/17 07/23/17 13:33 14:07 Temperature 98.7 F Pulse Rate 89 114 H Respiratory 16 16 Rate Blood Pressure 124/74 123/74 O2 Sat by Pulse 98 98 Oximetry - Reevaluation(s) Reevaluation #1: 07/23/17 13:10 Patient was reevaluated by myself, Dr. Austin. Patient states abdominal discomfort over the past 3 days. Abdomen is mildly distended. There is discomfort mostly in the epigastric and right lower quadrant. Patient is updated on results. Patient does have a history of prostate cancer and finished chemotherapy close to one month ago. Patient is supposed to undergo further chemotherapy for bony metastasis in the near future. Case was discussed with Dr. Carabllo who states patient can go for urgent surgery if needed. Dr. Marrero has been paged. 07/23/17 14:04 Case was discussed in detail with Dr. Marrero who states [facility]. Case was then discussed with Dr. Villatoro who on a different list was notified as the surgeon for Dr. Garcia. He will admit. (Carmine Austin) Medical Decision Making - Lab Data Result diagrams: 07/23/17 09:03 07/23/17 09:03 <Carmine Austin - Last Filed: 07/23/17 13:58> - Lab Data Result diagrams: 07/23/17 09:03 07/23/17 09:03 - Radiology Data Radiology results: report reviewed <Meredith Simon - Last Filed: 07/23/17 14:13> - Medical Decision Making This patient is 61-year-old male presents emergency Department chief complaint of lower abdominal pain cramping. Patient has had a poor appetite. Not drinking enough fluids. He has history of prostate cancer undergoing treatment with radiation and chemotherapy. Patient reports that he's been feeling feverish and chilled. Patient's KUB shows evidence of ileus. I did do a CAT scan. The patient does have acute tenderness to the abdomen. Patient CT shows evidence of acute appendicitis. Patient was started on Zosyn. Currently pending surgeon. At this time patient's case with Dr. Norman Austin discussed with Dr. Sayed. Mayes the case. We will consult the patient's oncologist. He is remaining nothing by mouth. Will be admitted at this time. (AuroraMeredith) - Lab Data Lab Results 07/23/17 07/23/17 07/23/17 Range/Units 09:03 09:03 10:40 WBC 7.8 (3.8-10.6) k/uL RBC 3.57 L (4.30-5.90) m/uL Hgb 9.6 L (13.0-17.5) gm/dL Hct 29.8 L (39.0-53.0) % MCV 83.5 (80.0-100.0) fL MCH 26.8 (25.0-35.0) pg MCHC 32.1 (31.0-37.0) g/dL RDW 20.2 H (11.5-15.5) % Plt Count 158 D (150-450) k/uL Neutrophils % (Manual) 70 % Band Neutrophils % 6 % Lymphocytes % (Manual) 17 % Monocytes % (Manual) 6 % Metamyelocytes % 2 % Myelocytes % 1 % Neutrophils # (Manual) 5.90 (1.3-7.7) k/uL Lymphocytes # (Manual) 1.33 (1.0-4.8) k/uL Monocytes # (Manual) 0.47 (0-1.0) k/uL Metamyelocytes # (Man) 0.16 H (0) k/uL Myelocytes # (Manual) 0.08 H (0) k/uL Nucleated RBCs 5 H (0-0) /100 WBC Manual Slide Review Performed Polychromasia Present Hypochromasia Slight Poikilocytosis Slight Anisocytosis Moderate Microcytosis Slight Sodium 139 (137-145) mmol/L Potassium 5.2 H (3.5-5.1) mmol/L Chloride 108 H (98-107) mmol/L Carbon Dioxide 23 (22-30) mmol/L Anion Gap 8 mmol/L BUN 43 H (9-20) mg/dL Creatinine 1.39 H (0.66-1.25) mg/dL Est GFR (CKD-EPI)AfAm 63 (>60 ml/min/1.73 sqM) Est GFR (CKD-EPI)NonAf 54 (>60 ml/min/1.73 sqM) Glucose 72 L (74-99) mg/dL Plasma Lactic Acid Keith 0.9 (0.7-2.0) mmol/L Calcium 8.2 L (8.4-10.2) mg/dL Total Bilirubin 0.7 (0.2-1.3) mg/dL AST 112 H (17-59) U/L ALT 73 H (21-72) U/L Alkaline Phosphatase 264 H (38-126) U/L Total Protein 5.3 L (6.3-8.2) g/dL Albumin 2.8 L (3.5-5.0) g/dL Amylase 43 (30-110) U/L Lipase 31 (23-300) U/L Urine Color Urine Appearance (Clear) Urine pH (5.0-8.0) Ur Specific [place] (1.001-1.035) Urine Protein (Negative) Urine Glucose (UA) (Negative) Urine Ketones (Negative) Urine Blood (Negative) Urine Nitrite (Negative) Urine Bilirubin (Negative) Urine Urobilinogen (<2.0) mg/dL Ur Leukocyte Esterase (Negative) 07/23/17 Range/Units 13:08 WBC (3.8-10.6) k/uL RBC (4.30-5.90) m/uL Hgb (13.0-17.5) gm/dL Hct (39.0-53.0) % MCV (80.0-100.0) fL MCH (25.0-35.0) pg MCHC (31.0-37.0) g/dL RDW (11.5-15.5) % Plt Count (150-450) k/uL Neutrophils % (Manual) % Band Neutrophils % % Lymphocytes % (Manual) % Monocytes % (Manual) % Metamyelocytes % % Myelocytes % % Neutrophils # (Manual) (1.3-7.7) k/uL Lymphocytes # (Manual) (1.0-4.8) k/uL Monocytes # (Manual) (0-1.0) k/uL Metamyelocytes # (Man) (0) k/uL Myelocytes # (Manual) (0) k/uL Nucleated RBCs (0-0) /100 WBC Manual Slide Review Polychromasia Hypochromasia Poikilocytosis Anisocytosis Microcytosis Sodium (137-145) mmol/L Potassium (3.5-5.1) mmol/L Chloride (98-107) mmol/L Carbon Dioxide (22-30) mmol/L Anion Gap mmol/L BUN (9-20) mg/dL Creatinine (0.66-1.25) mg/dL Est GFR (CKD-EPI)AfAm (>60 ml/min/1.73 sqM) Est GFR (CKD-EPI)NonAf (>60 ml/min/1.73 sqM) Glucose (74-99) mg/dL Plasma Lactic Acid Keith (0.7-2.0) mmol/L Calcium (8.4-10.2) mg/dL Total Bilirubin (0.2-1.3) mg/dL AST (17-59) U/L ALT (21-72) U/L Alkaline Phosphatase (38-126) U/L Total Protein (6.3-8.2) g/dL Albumin (3.5-5.0) g/dL Amylase (30-110) U/L Lipase (23-300) U/L Urine Color Yellow Urine Appearance Clear (Clear) Urine pH 5.0 (5.0-8.0) Ur Specific [place] 1.024 (1.001-1.035) Urine Protein Trace H (Negative) Urine Glucose (UA) Negative (Negative) Urine Ketones Trace H (Negative) Urine Blood Negative (Negative) Urine Nitrite Negative (Negative) Urine Bilirubin Negative (Negative) Urine Urobilinogen <2.0 (<2.0) mg/dL Ur Leukocyte Esterase Negative (Negative) - Radiology Data CT shows findings suspicious for acute appendicitis with a dilated blind tubular structure emanating from the cecum and small amount of free fluid. Correlate her right lower quadrant pain. Diffuse skeletal metastases. Overall stable pathologic adenopathy. Diffuse heterogenicity of the liver. Infrarenal abdominal aortic aneurysm. Enlarging left chest wall lymph node. Further evaluation with direct target ultrasound is recommended to evaluate for cortical thickening. Fatty replacement of the eye lump. An overall morphology. KUB showed she states the findings represent enteritis or ileus. Follow-up is indicated. Metastatic disease to the bones. (Meredith Simon) Disposition <Carmine Austin - Last Filed: 07/23/17 13:58> Time of Disposition: 14:07 <Meredith Simon - Last Filed: 07/23/17 14:13> Clinical Impression: Appendicitis, Prostate cancer, KSENIA (acute kidney injury) Disposition: ADMITTED IP TO THIS HOSP Condition: Stable Referrals: Shayna De MD [Primary Care Provider] - 1-2 days
[2017-07-23 11:00] LABS: Band Neutrophils % 6 %; Lymphocytes # (M) 1.33 k/uL (1.0-4.8); Metamyelocytes # (M) 0.16 k/uL (0); Metamyelocytes % 2 %; Monocytes # (M) 0.47 k/uL (0-1.0); Myelocytes # (M) 0.08 k/uL (0); Myelocytes % 1 %; Neutrophils % (M) 70 %; Nucleated Red Blood Cells 5 /100 WBC (0-0); Total Cells Counted 200; WBC 7.8 k/uL (3.8-10.6)
[2017-07-23 11:01] LABS: Polychromasia Present
[2017-07-23] MEDS ORDERED: RX INFO: IV CONTRAST WAS GIVEN 1 EACH MISC MISCELLANE PRN (11:05)
[2017-07-23] MEDS: SODIUM CHLORIDE 0.9% 1,000 ML IV SCH ×2 (12:19→19:22)
--- NOTE | 2017-07-23 12:43 | CT ---
EXAMINATION TYPE: CT abdomen pelvis w con DATE OF EXAM: 07/23/2017 COMPARISON: NONE HISTORY: Abd pain and back pain with vomiting CT DLP: 1524 mGycm Automated exposure control for dose reduction was used. TECHNIQUE: Helical acquisition of images was performed from the lung bases through the pelvis. CONTRAST: Performed without Oral Contrast and with IV Contrast, patient injected with 50 mL of Isovue 300. FINDINGS: LUNG BASES: Bibasilar subsegmental dependent atelectasis is seen. Symmetric bilateral retroareolar gy necomastia is noted. An enlarging lymph node is seen in the upper outer left chest wall on series 3 i mage 1 measuring 8 mm in short axis. LIVER/GB: The liver is diffusely heterogenous. More rounded areas are seen within the hepatic dome jaquez ch as on series 3 image 10 measuring up to 6.1 cm. The liver is enlarged extending into the left uppe r quadrant. Layering biliary sludge is seen within the gallbladder. PANCREAS: There is pancreatic atrophy with thinning of the pancreatic head, uncinate process and body . SPLEEN: No significant abnormality is seen. ADRENALS: No significant abnormality is seen. KIDNEYS: Renal vascular calcifications and lesion that is too small to accurately characterize within the left mid pole are demonstrated. FREE AIR: No free air is visualized. ADENOPATHY: Numerous enlarged lymph nodes are seen within the periaortic region with the largest inf erior to the left renal artery measuring 1.4 cm in short axis, similar to exam of 05/12/2017. Common il iac chain lymph nodes are also identified and appear pathologically enlarged. REPRODUCTIVE ORGANS: Prostate gland is surgically absent. URINARY BLADDER: No significant abnormality is seen. OSSEOUS STRUCTURES: There is diffuse osseous sclerotic osseous metastasis involving all the visualiz ed osseous structures. BOWEL: What appears to be the appendix emanating from the cecum as a blind-ending pouch on series 3 image 67 and series 5 image 53 is dilated up to 1.4 cm with a scant amount of adjacent free fluid. Fe w prominent but nonenlarged loops of small bowel are scattered throughout the abdomen. OTHER: There is an infrarenal abdominal aortic aneurysm within the distal aorta measuring 3.4 x 3.2 c m that is fusiform and elongated with ectasia of the left common iliac artery measuring up to 1.7 cm. IMPRESSION: 1. FINDINGS SUSPICIOUS FOR ACUTE APPENDICITIS WITH A DILATED BLIND ENDING TUBULAR STRUCTURE EMANATING FROM THE CECUM AND A SMALL AMOUNT OF FREE FLUID. CORRELATE FOR RIGHT LOWER QUADRANT PAIN. NO EVIDENC E OF OBSTRUCTION. 2. DIFFUSE SKELETAL METASTASIS, OVERALL STABLE PATHOLOGIC ADENOPATHY, AND DIFFUSE HETEROGENEITY OF TH E LIVER ALSO CONCERNING FOR MULTIFOCAL METASTASIS. MRI ABDOMEN COULD BE PERFORMED TO FURTHER CHARACTE RIZE THE LIVER. 3. Infrarenal abdominal aortic aneurysm.
[2017-07-23] MEDS ORDERED: PIPERACILLIN-TAZOBACTAM 3.375 GM in DEXTROSE/WATER 1 50ML.BAG IVPB STA (13:03)
[2017-07-23 13:21] LABS: Appearance,Urine Clear (Clear); Bilirubin,Urine Negative (Negative); Blood,Urine Negative (Negative); Color,Urine Yellow; Glucose,Urine (UA) Negative (Negative); Ketones,Urine Trace (Negative); Leukocyte Esterase,Urine Negative (Negative); Nitrite,Urine Negative (Negative); Protein,Urine Trace (Negative); Specific Gravity,Urine 1.024 (1.001-1.035); Urobilinogen,Urine <2.0 mg/dL (<2.0)
[2017-07-23] MEDS ORDERED: ONDANSETRON 4 MG/2 ML VIAL IVP PRN (14:08)
[2017-07-23] MEDS ORDERED: NALOXONE 0.4 MG/ML 1 ML VIAL IV PRN (14:08)
[2017-07-23] MEDS ORDERED: PROCHLORPERAZINE 10 MG TAB PO PRN (14:10)
[2017-07-23] MEDS ORDERED: CYCLOBENZAPRINE 5 MG TAB PO PRN (14:10)
[2017-07-23] MEDS: DEXAMETHASONE 4 MG TAB PO SCH ×2 (15:56→21:09)
[2017-07-23] MEDS: MORPHINE SULFATE/PF 10MG/10ML VL IV PRN ×2 (19:33→23:49)
[2017-07-24] MEDS: SODIUM CHLORIDE 0.9% 1,000 ML IV SCH ×2 (05:41→15:36)
[2017-07-24 06:21] LABS: Appearance,Urine Cloudy (Clear); Bilirubin,Urine Negative (Negative); Blood,Urine Negative (Negative); Color,Urine Yellow; Glucose,Urine (UA) Negative (Negative); Ketones,Urine 1+ (Negative); Leukocyte Esterase,Urine Negative (Negative); Mucus,Urine Rare /hpf; Nitrite,Urine Negative (Negative); Protein,Urine Trace (Negative); Specific Gravity,Urine 1.018 (1.001-1.035); Squamous Epithelial Cell,Urine <1 /hpf (0-4); Uric Acid Crystals,Urine Rare /hpf; Urobilinogen,Urine <2.0 mg/dL (<2.0)
[2017-07-24] MEDS: MORPHINE SULFATE/PF 10MG/10ML VL IV PRN (07:06)
[2017-07-24 07:12] LABS: Albumin 2.4 g/dL (3.5-5.0); Calcium 7.7 mg/dL (8.4-10.2); Magnesium 2.5 mg/dL (1.6-2.3); Potassium 4.8 mmol/L (3.5-5.1); Total Bilirubin 0.7 mg/dL (0.2-1.3); Total Protein 4.8 g/dL (6.3-8.2)
[2017-07-24 07:13] LABS: Anisocytosis Moderate; HCT 24.4 % (39.0-53.0); Hypochromasia Slight; MCH 26.5 pg (25.0-35.0); MCHC 31.4 g/dL (31.0-37.0); MCV 84.2 fL (80.0-100.0); Mean Platelet Volume 7.7; Microcytosis Slight; Platelet Count 138 k/uL (150-450); Poikilocytosis Slight; RDW 20.1 % (11.5-15.5)
[2017-07-24 07:16] LABS: HGB 7.7 gm/dL (13.0-17.5)
[2017-07-24] MEDS: PIPERACILLIN-TAZOBACTAM 3.375 GM in DEXTROSE/WATER 1 50ML.BAG IVPB SCH ×2 (07:37→15:34)
[2017-07-24 07:39] LABS: Band Neutrophils % 5 %; Eosinophils # (M) 0.09 k/uL (0-0.7); Lymphocytes # (M) 1.13 k/uL (1.0-4.8); Metamyelocytes # (M) 0.09 k/uL (0); Metamyelocytes % 1 %; Monocytes # (M) 0.28 k/uL (0-1.0); Neutrophils % (M) 78 %; Nucleated Red Blood Cells 2 /100 WBC (0-0); Total Cells Counted 200; WBC 9.4 k/uL (3.8-10.6)
[2017-07-24 07:40] LABS: Ovalocytes Present; Poikilocytosis (M) Present
[2017-07-24] MEDS: IPRATROPIUM-ALBUTEROL 3 ML NEB INHALATION SCH ×4 (07:49→20:11)
[2017-07-24] MEDS ORDERED: IV FLUID CONTINUATION 1,000 ML IV ONE (07:50)
--- NOTE | 2017-07-24 08:27 | CONS ---
CONSULTATION DATE OF SERVICE: 07/23/2017 REASON FOR CONSULTATION: Advice regarding COPD and other medical issues requested by Dr. Matias. HISTORY OF PRESENT ILLNESS: This 61-year-old gentleman with a past medical history of COPD, GERD, hyperlipidemia, history of prostate disorder, history of DJD being followed by Dr. De in the outpatient setting was admitted with complaints of abdominal pain. The pain was mostly situated in the upper part and also right lower quadrant also. The patient also had abdominal fullness. The patient also had a prostate cancer with mets in the spine and pelvis with radiation and chemotherapy. Hematology/Oncology is following the patient closely. The CAT scan of the abdomen showed multiple findings, which is suspicious for acute appendicitis and as well as diffuse skeletal metastasis and enlarged lymph nodes and infrarenal abdominal aortic aneurysm. There is no history of any fever, rigors. No history of headache, loss of consciousness, or seizures at this time. PAST MEDICAL HISTORY: History of COPD, GERD, hyperlipidemia, history of prostate cancer with mets. MEDICATIONS: At home medication are: 1. Fentanyl 25 mcg q.72 hours. 2. Compazine 10 mg q.6 p.r.n. 3. Aleve 220 to 440 mg p.o. daily p.r.n. 4. Hexadrol 4 mg p.o. t.i.d. 5. Caltrate 1 p.o. daily. 6. Tylenol 650 q.4h p.r.n. 7. Multivitamins 1 p.o. daily. 8. Flexeril 5 mg t.i.d. p.r.n. ALLERGIES: Allergies are none FAMILY HISTORY: History of colon cancer in the family. SOCIAL HISTORY: No history of alcohol intake and history of smoking. REVIEW OF SYSTEMS: ENT: No diminished hearing or diminished vision. CARDIOVASCULAR SYSTEM: No angina. RESPIRATORY: As mentioned earlier. GI: As mentioned earlier. : As mentioned earlier. NERVOUS SYSTEM: No numbness or weakness. ALLERGY/IMMUNOLOGY: No history of asthma or hayfever. MUSCULOSKELETAL: As mentioned earlier. HEMATOLOGY/ONCOLOGY: As mentioned earlier. ENDOCRINE: As mentioned earlier. CONSTITUTIONAL: As mentioned earlier. DERMATOLOGY: Negative. RHEUMATOLOGY: Negative. PSYCHIATRY: As mentioned earlier. PHYSICAL EXAMINATION: The patient is alert and oriented x3. Pulse is 116, blood pressure 111/64, respirations 16, temperature 99.8, pulse ox 93% on room air. HEENT: Conjunctivae normal. Oral mucosa moist. Neck is no jugular venous distention. No carotid bruit. No lymph node enlargement. CARDIOVASCULAR: S1 and S2 muffled. No S3 or S4. RESPIRATORY: Breath sounds diminished at the bases. A few scattered rhonchi and crackles. ABDOMEN: Soft. Mildly diffuse distention, mild diffuse tenderness present. No guarding. No rigidity. No definite mass palpable. Vague mass felt in the upper abdomen. LEGS: No edema, no swelling. NERVOUS SYSTEM: Higher function as mentioned earlier, moves all 4 limbs. No focal motor or sensory deficits. LYMPHATICS: No lymphadenopathy of the neck, axillae or groin. SKIN: No ulcer, rash or bleeding. JOINTS: No active deforming arthropathy. LABS: WBC 7.8, hemoglobin 9.6. Sodium 139, potassium 5.2. Creatinine is 1.39. AST is 112, ALT 73, alkaline phosphatase 264. Albumin is 2.8. ASSESSMENT: 1. Abdominal pain possible acute appendicitis for evaluation. 2. Chronic obstructive pulmonary disease. 3. Prostate cancer with metastasis, on radiation and chemotherapy. 4. Gastroesophageal reflux disease. 5. Hyperlipidemia. 6. History of rectal bleeding, internal hemorrhoids. 7. History of constipation. 8. History of continued nicotine dependence. RECOMMENDATION AND DISCUSSION: In this 61-year-old gentleman who presented with multiple complex medical issues, will monitor the patient closely. Continue the current medications, continue symptomatic treatment. The patient is started on broad-spectrum IV antibiotics. I recommend to follow the patient closely and proton pump inhibitors. DVT prophylaxis. I would also recommend consultation with Hematology/Oncology. Guarded prognosis because of multiple complex medical issues. I would also make sure reconciled the home medications as well. Otherwise, prognosis guarded because of multiple medical issues. See orders for further details. Further recommendations to follow. MMODL / IJN: [id number] /
[2017-07-24] MEDS ORDERED: ONDANSETRON 4 MG/2 ML VIAL IVP ONE ×3 (08:48→11:13)
--- NOTE | 2017-07-24 08:48 | XR ---
EXAMINATION TYPE: XR chest 1V portable DATE OF EXAM: 07/24/2017 COMPARISON: Prior chest 08/01/2016 HISTORY: Congestive heart failure, prostate cancer TECHNIQUE: Single frontal view of the chest is obtained. FINDINGS: Patient is rotated. Heart size may be accentuated by technique. No evident pneumothorax or pleural effusion. Patchy basilar density is noted bilaterally. Pulmonary vascularity may be slightly prominent as compared to prior, interstitium is slightly increased. Bones are stable. IMPRESSION: Heart size may be increased. Difficult to exclude pulmonary venous hypertension and esthela y interstitial edema. There may be basilar atelectasis.
[2017-07-24] MEDS ORDERED: DEXAMETHASONE SOD PHOSPHATE 10 MG/ML 1 ML VIAL IV ONE (08:49)
[2017-07-24] MEDS ORDERED: HEPARIN SODIUM,PORCINE 5,000 UNIT/ML 1 ML VIAL SQ SCH (09:00)
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
[2017-07-24] MEDS ORDERED: PROPOFOL 10 MG/ML 20 ML VIAL IV ONE (09:51)
[2017-07-24] MEDS ORDERED: VECURONIUM 10 MG VIAL IV ONE (09:51)
[2017-07-24] MEDS ORDERED: KETOROLAC 30 MG/ML 1 ML VIAL ONE (09:51)
[2017-07-24] MEDS ORDERED: MIDAZOLAM 2 MG/2 ML VIAL ONE (09:51)
[2017-07-24] MEDS ORDERED: fentaNYL (PF) 50 MCG/ML 2 ML AMP ONE (09:51)
[2017-07-24] MEDS ORDERED: BUPIVACAINE (PF) 0.25% 30 ML VIAL SQ ONE ×2 (10:04→10:18)
--- NOTE | 2017-07-24 10:50 | P.OP ---
Date of Procedure: 07/24/17 Preoperative Diagnosis: Acute appendicitis Postoperative Diagnosis: Appendicitis Liver cirrhosis Procedure(s) Performed: Laparoscopic appendectomy Laparoscopic liver biopsy Anesthesia: TIMMY Surgeon: Quinten Matias Estimated Blood Loss (ml): 5 Pathology: other (Appendix, gallbladder) Condition: stable Disposition: PACU Description of Procedure: The patient's placed on the operating table in the supine position. The patient received general anesthesia. The abdomen was prepped and draped in the usual sterile fashion. The skin was anesthetized 1% local Xylocaine at the trocar sites. Using an 11 blade the skin was incised at the umbilicus. The umbilicus was grasped with a Gramercy clamp and then a Veress needle was placed into the peritoneal cavity. Position of the Veress needle was confirmed with positive drop test. After adequate insufflation a 5 mm trocar was placed into the peritoneal cavity. The abdomen was further insufflated. And then the laparoscope was placed in the peritoneal cavity. Next a 5 mm trocar was placed in the midline suprapubic position. And then a 10 mm trocar was placed in the midline epigastric position. There was some hemorrhagic fluid noted within the perineal cavity. The liver was obviously cirrhotic. It appeared to have some hemorrhage. A liver biopsy was performed using a toothed forcep and cautery was used for hemostasis. The patient was rotated with the right side up and in Trendelenburg. The appendix was visualized. The appendix appeared to be minimally inflamed. The appendix was grasped and then using the Harmonic scissors the mesoappendix was divided. A PDS Endoloop was then placed around the base of the appendix. And then the appendix was divided using Harmonic scissors. The appendix was placed into an Endo Catch and brought out through the 10 mm trocar site. The abdomen was irrigated. There is no bleeding seen. The trochars withdrawn. The skin was closed interrupted 3-0 Monocryl suture. Dermabond dressing was applied. Patient was sent to recovery room in stable condition.
[2017-07-24 10:52] VITALS: BMI 23.7
[2017-07-24] MEDS ORDERED: MORPHINE SULFATE/PF 10MG/10ML VL IVP PRN (10:52)
[2017-07-24] MEDS ORDERED: LACTATED RINGERS 1,000 ML IV ONE (10:52)
[2017-07-24] MEDS ORDERED: NALOXONE 0.4 MG/ML 1 ML VIAL IV PRN (10:52)
[2017-07-24] MEDS ORDERED: METOCLOPRAMIDE 5 MG/ML 2 ML VIAL IVP ONE (11:33)
[2017-07-24] MEDS ORDERED: fentaNYL (PF) 50 MCG/ML 2 ML AMP IVP ONE (11:41)
[2017-07-24] MEDS: PANTOPRAZOLE 40 MG/10 ML VIAL IV SCH (12:15)
[2017-07-24] MEDS: DEXAMETHASONE 4 MG TAB PO SCH ×3 (12:15→22:20)
[2017-07-24] MEDS: CALCIUM CARB-VIT D 500MG-200UN 1 EACH TAB PO SCH (12:15)
[2017-07-24] MEDS: MULTIVITAMINS, THERA 1 EACH TAB PO SCH (12:16)
[2017-07-24 14:08] LABS: INR 1.3 (<1.2); Prothrombin Time 12.1 sec (9.0-12.0)
[2017-07-24 14:09] LABS: Partial Thromboplastin Time 28.1 sec (22.0-30.0)
--- NOTE | 2017-07-24 14:13 | PN ---
PROGRESS NOTE DATE OF SERVICE: 07/24/2017 This is a 61-year-old gentleman admitted with suspected appendicitis, underwent laparoscopic appendectomy by Dr. Matias with the laparoscopic liver biopsy too. Some hemorrhage of fluid was noted in the peritoneal cavity. The liver was thought to be possibly cirrhotic and liver biopsy done as mentioned earlier. Patient did have history of EtOH previously. Patient is being closely monitored. PAST MEDICAL HISTORY: Reviewed. REVIEW OF SYSTEMS: Cardiovascular: No angina or palpitation. RESPIRATORY: Occasional cough. GI: As mentioned earlier. : No dysuria. NERVOUS SYSTEM: No numbness or weakness. CURRENT MEDICATIONS: 1. Argos 3 mg q.6 p.r.n. 2. DuoNeb q.i.d. and p.r.n. 3. Os-Jasmeet with vitamin D. 4. Flexeril 5 mg t.i.d. p.r.n. 5. Hexadrol. 6. Lovenox. 7. Duragesic patch. 8. Multivitamins. 9. Narcan. 10.Protonix. 11.Zosyn. PHYSICAL EXAM: Patient is alert, oriented x3. Pulse 85, blood pressure 120/60, respirations 16, temperature 97.7, pulse ox 94% on 2 L. HEENT: Conjunctivae normal. Oral mucosa moist. Neck is no jugular venous distensino. CARDIOVASCULAR SYSTEMS: S1, S2, muffled. RESPIRATORY: Breath sounds diminished at the bases, scattered rhonchi, no crackles. ABDOMEN: Soft, obese, mild diffuse tenderness present. No guarding. No rigidity. No mass palpable. LEGS: No edema, no swelling. NERVOUS SYSTEM: Higher functions as mentioned, moves all four limbs. No focal deficits. LYMPHATICS: No lymph node enlargement in neck or axillae. LABS: WBC 9.2, hemoglobin 7.7, sodium 143, potassium 4.8, magnesium is 2.5 and AST is 118. Albumin is 2.4. UA noted. The chest x-ray was done showed possibly some interstitial pulmonary hypertension. ASSESSMENT: 1. Abdominal pain, distention, status post laparoscopic appendectomy and laparoscopic liver biopsy. 2. Hemorrhage fluid noted in the peritoneal cavity during the laparoscopy. 3. Cirrhosis of the liver, possibly secondary to ETOH. 4. History of chronic obstructive pulmonary disease. 5. History of prostate cancer with METS on radiation and chemotherapy. 6. Gastroesophageal reflux disease. 7. Hyperlipidemia. 8. History of rectal bleeding, internal hemorrhoids. 9. History of constipation. 10.History of ongoing nicotine dependence. RECOMMENDATIONS AND DISCUSSION: In this 61-year-old gentleman who presented with multiple complex medical issues, will monitor the patient closely. Continue with the current management and symptomatic treatment. I would recommend coags on a stat basis and corrective to find any abnormality. Otherwise, continue to monitor. Repeat labs are recommended closely. Await for the biopsy report. The rest of the recommendations per Surgery. Prognosis guarded. Further recommendations to follow. MMODL / IJN: [id number] /
[2017-07-24] MEDS: HYDROcodone/APAP 5-325MG 1 EACH TAB PO PRN ×2 (15:33→22:20)
--- NOTE | 2017-07-24 15:52 | P.PN ---
Progress Note - Text Progress Note Date: 07/24/17 Attempted to see patient, in Surgery. Will follow-up tomorrow AM.
[2017-07-25] MEDS: PIPERACILLIN-TAZOBACTAM 3.375 GM in DEXTROSE/WATER 1 50ML.BAG IVPB SCH ×4 (00:30→23:54)
[2017-07-25] MEDS: SODIUM CHLORIDE 0.9% 1,000 ML IV SCH ×3 (06:27→23:55)
[2017-07-25 07:37] LABS: Albumin 2.4 g/dL (3.5-5.0); Calcium 7.4 mg/dL (8.4-10.2); Potassium 5.5 mmol/L (3.5-5.1); Total Bilirubin 0.7 mg/dL (0.2-1.3); Total Protein 4.8 g/dL (6.3-8.2)
[2017-07-25 07:46] LABS: Anisocytosis Moderate; HCT 23.4 % (39.0-53.0); Hypochromasia Marked; MCH 25.5 pg (25.0-35.0); MCHC 29.5 g/dL (31.0-37.0); MCV 86.5 fL (80.0-100.0); Mean Platelet Volume 8.2; Platelet Count 116 k/uL (150-450); Poikilocytosis Slight; RDW 20.4 % (11.5-15.5); WBC 8.8 k/uL (3.8-10.6)
[2017-07-25 08:23] LABS: HGB 6.9 gm/dL (13.0-17.5)
[2017-07-25] MEDS: PANTOPRAZOLE 40 MG/10 ML VIAL IV SCH (08:31)
[2017-07-25] MEDS: IPRATROPIUM-ALBUTEROL 3 ML NEB INHALATION SCH ×4 (09:01→20:14)
[2017-07-25] MEDS: ENOXAPARIN 40 MG/0.4 ML SYRINGE SQ SCH (09:05)
[2017-07-25] MEDS: DEXAMETHASONE 4 MG TAB PO SCH ×3 (09:05→23:55)
[2017-07-25] MEDS: CALCIUM CARB-VIT D 500MG-200UN 1 EACH TAB PO SCH (09:05)
[2017-07-25] MEDS: HYDROcodone/APAP 5-325MG 1 EACH TAB PO PRN (09:06)
[2017-07-25 09:29] LABS: Band Neutrophils % 4 %; Eosinophils # (M) 0.09 k/uL (0-0.7); Lymphocytes # (M) 0.79 k/uL (1.0-4.8); Metamyelocytes # (M) 0.09 k/uL (0); Metamyelocytes % 1 %; Monocytes # (M) 0.44 k/uL (0-1.0); Myelocytes # (M) 0.18 k/uL (0); Myelocytes % 2 %; Neutrophils % (M) 80 %; Nucleated Red Blood Cells 0 /100 WBC (0-0); Total Cells Counted 200
[2017-07-25 09:31] LABS: Toxic Granulation Present
[2017-07-25] MEDS: MULTIVITAMINS, THERA 1 EACH TAB PO SCH (12:19)
--- NOTE | 2017-07-25 14:37 | P.PN ---
Subjective Progress Note Date: 07/25/17 61-year-old male being seen and examined this morning. Patient continues to report feeling dizzy sensation. Hemoglobin this morning 6.9. Hemoglobin the day before 7.7. States no bowel movement but is passing gas. Abdomen is firm and distended. Patient states has not had a bowel movement in days. Poor oral intake at home Patient does report having some abdominal discomfort. Patient additionally reports that his abdomen has been distended like this "for the past several weeks" patient is undergoing chemo and radiation treatment for prostate cancer being followed by oncology Patient's postop on July 24 laparoscopic appendectomy and liver biopsy for epigastric right lower quadrant pain noted operative report indicated hemorrhage of fluid within the peritoneal cavity the liver was thought to be possibly cirrhotic. Objective - Vital Signs Vital signs: Vital Signs Temp 98.1 F 07/25/17 13:54 Pulse 96 07/25/17 13:54 Resp 18 07/25/17 13:54 BP 141/75 07/25/17 13:54 Pulse Ox 94 L 07/25/17 13:54 Intake & Output 07/24/17 07/25/17 07/25/17 18:59 06:59 18:59 Intake Total 1800 0 Output Total 5 175 Balance 1795 -175 Weight 77.111 kg Intake: IV 650 Intake, IV Titration 1150 Amount Lactated Ringers 1,000 ml 800 @ 100 mls/hr IV .Q10H [facility] Rx#:[id number] Piperacillin-Tazobactam 3 50 .375 gm In Dextrose/Water 1 50ml.bag @ 12.5 mls/hr IVPB Q8HR [facility] Rx#: [id number] Sodium Chloride 0.9% 1, 300 000 ml @ 100 mls/hr IV . Q10H [facility] Rx#:[id number] Blood Product 0 Rc Pheresis As-3 Unit 0 [id number] Output: Urine 175 Estimated Blood Loss 5 Other: Voiding Method Urinal Urinal Toilet # Voids 0 1 1 - Exam GENERAL APPEARANCE: 61-year-old patient is alert, oriented, in no acute distress. Sitting up in bed is hard of hearing VITAL SIGNS: Reviewed HEENT: Head is normocephalic and atraumatic. Pupils are equal and reactive. The nares are patent. Oropharynx is clear without lesions. NECK: Supple without lymphadenopathy. Traches midline. HEART: S1, S2. Regular rate and rhythm. LUNGS: No crackles or wheezes are heard. ABDOMEN: Firm no facial grimacing with palpitation to the abdominal wall reports having discomfort similar to what he had before surgery No peritoneal signs. No palpable organomegaly or masses. Surgical dressing sites dry hypoactive bowel tones no stool decrease appetite no nausea no vomiting EXTREMITIES: Normal skin color and turgor. No cyanosis, rash, ulceration, clubbing or edema. Radial pedal pulses are 2/4 bilaterally. - Labs CBC & Chem 7: 07/25/17 06:47 07/25/17 06:47 Labs: Abnormal Lab Results - Last 24 Hours (Table) 07/24/17 07/25/17 07/25/17 Range/Units 08:53 06:47 06:47 RBC 2.70 L (4.30-5.90) m/uL Hgb 6.9 L* (13.0-17.5) gm/dL Hct 23.4 L (39.0-53.0) % MCHC 29.5 L (31.0-37.0) g/dL RDW 20.4 H (11.5-15.5) % Plt Count 116 L (150-450) k/uL Lymphocytes # (Manual) 0.79 L (1.0-4.8) k/uL Metamyelocytes # (Man) 0.09 H (0) k/uL Myelocytes # (Manual) 0.18 H (0) k/uL Potassium 5.5 H (3.5-5.1) mmol/L Chloride 112 H (98-107) mmol/L Carbon Dioxide 18 L (22-30) mmol/L BUN 48 H (9-20) mg/dL Creatinine 2.27 H (0.66-1.25) mg/dL Glucose 114 H (74-99) mg/dL Calcium 7.4 L (8.4-10.2) mg/dL AST 106 H (17-59) U/L Alkaline Phosphatase 198 H (38-126) U/L Total Protein 4.8 L (6.3-8.2) g/dL Albumin 2.4 L (3.5-5.0) g/dL Crossmatch See Detail Microbiology - Last 24 Hours (Table) 07/23/17 10:40 Blood Culture - Preliminary Blood No Growth after 48 hours Assessment and Plan Assessment: Impression Present on admission abdominal pain right upper quadrant likely due to acute appendicitis History of prostate cancer chemoradiation treatment recent Status post laparoscopic appendectomy, laparoscopic liver biopsy did show some hemorrhagic fluid within the peritoneal cavity Laparoscopic showed liver likely cirrhotic Mildly elevated potassium 5.5 Acute on chronic renal failure creatinine up to 2.2 Mild protein calorie malnutrition Chronic constipation Symptomatic anemia tachycardic dizziness lightheadedness Plan Continue postop surgical care Monitor labs closely Consult nephrology Await hematology oncology eval Will transfuse 1 unit of packed red blood cells for a hemoglobin of less than 7 Home meds as appropriate Colace as ordered Increase activity as tolerated DVT and GI prophylaxis The above impression and plan of care have been discussed and directed by signing physician. Abigail Miller nurse practitioner acting as scribe for signing physician.
--- NOTE | 2017-07-25 15:49 | CDI ---
Last Revision, April 2017 Documentation Clarification Form Date: 07/25/2017 From: Albina LUDY Novoa, CCDS Admit Date: 07/23/2017 2:05:00 PM Patient Name: Neo Hendrix Visit Number: [id number] Discharge Date: ATTENTION: The Clinical Documentation Specialists (CDI) and [facility] Coding Staff appreciate your assistance in clarifying documentation. Please respond to the clarification below the line at the bottom and electronically sign. The CDI & [facility] Coding staff will review the response and follow-up if needed. Please note: Queries are made part of the Legal Health Record. If you have any questions, please contact the author of this message via ITS. Dr. Quinten Matias: A diagnosis of anemia lacks specificity to accurately reflect your patients severity of condition and clarification is needed. Per the progress notes: Symptomatic anemia, tachycardic, dizziness, lightheadedness History/Risk Factors: Prostate CA with mets to spine status post chemo & radiation, Alcoholism. Clinical indicators: Presented with lower abdominal pain, currently receiving chemo & radiation. Hemoglobin: 07/23: 9.6, 07/25 postop lap appy & liver bx: 6.9 Hematocrit: 07/23: 29.8, 07/25 postop: 23.4 Treatment: 1 units of PRBCs transfused, monitoring labs In order to capture the severity of condition, please clarify the type of anemia and etiology if known: Acute blood loss anemia Acute on chronic blood loss anemia Chronic blood loss anemia Iron deficiency anemia Hemolytic anemia Drug induced anemia Anemia due to malignancy Nutritional anemia Anemia of chronic kidney disease Unable to determine Other, please specify Please continue to document in your progress notes and discharge summary in order to capture severity of illness and risk of mortality. Include clinical findings that support your diagnosis. MTDD
[2017-07-25] MEDS: DOCUSATE 100 MG CAP PO SCH ×2 (16:19→20:32)
--- NOTE | 2017-07-25 18:38 | PN ---
PROGRESS NOTE DATE OF SERVICE: 07/25/2017 Patient is sitting up in bed. He is voicing no complaints at this time. He is status post laparoscopic appendectomy with liver biopsy for epigastric and right lower quadrant pain. Operative report indicated hemorrhagic fluid in the peritoneal cavity which was possibly thought to be cirrhotic. VITAL SIGNS: Temperature 98.1, pulse 96, respiration 18, blood pressure 141/75, oxygen saturation 94%. GENERAL: Patient is awake, alert, oriented. He is in no acute distress. He is sitting up in the bed. HEENT: Atraumatic, normocephalic. Pupils equal and reactive to light. Extraocular movements intact. Buccal mucosa is fair. NECK: Supple. No goiter, lymphadenopathy. JVD is negative. No carotid bruit heard. Lungs are clear to auscultation. No rales, rhonchi or wheezes. Heart is regular rate and rhythm without any murmurs, gallop rhythm. Abdomen is soft to firm with decreased bowel sounds. EXTREMITIES: No edema, clubbing, cyanosis. Pulses are palpable. LABS: CBC: White blood count 8.8, hemoglobin 6.9, hematocrit 23.1, platelet count of 116. Chemical profile: Sodium 140, potassium 5.5, chloride 112, bicarb 18, BUN 48, creatinine 2.27, and glucose 114. ASSESSMENT: 1. Abdominal pain, status post laparoscopic appendectomy and laparoscopic liver biopsy. 2. Hemorrhagic fluid in the peritoneal cavity, possibly secondary to liver cirrhosis. 3. 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 4. Severe postoperative anemia. 5. Hyperkalemia. 6. Acute kidney injury. 7. Mild protein-calorie malnutrition. 8. Constipation. 9. Symptomatic anemia. PLAN: To continue current medication. Patient was transfused with one unit of packed RBCs. Hematology/Oncology is consulted. Nephrology consult is done. Will monitor I&O pretty closely, monitor electrolytes and renal function. Continue with postoperative surgical care. Further recommendations after patient is evaluated by Nephrology and Hematology. MMODL / IJN: [id number] /
[2017-07-25] MEDS: POLYETHYLENE GLYCOL 3350 17 GM POWD.PACK PO SCH (20:55)
[2017-07-26 08:13] LABS: Anisocytosis Slight; HCT 27.5 % (39.0-53.0); HGB 8.8 gm/dL (13.0-17.5); Hypochromasia Slight; MCH 27.1 pg (25.0-35.0); MCHC 32.2 g/dL (31.0-37.0); MCV 84.3 fL (80.0-100.0); Mean Platelet Volume 6.8; Microcytosis Slight; Platelet Count 102 k/uL (150-450); Poikilocytosis Slight; RBC 3.26 m/uL (4.30-5.90); RDW 19.8 % (11.5-15.5)
[2017-07-26 08:16] LABS: Albumin 2.7 g/dL (3.5-5.0); Potassium 5.3 mmol/L (3.5-5.1); Total Bilirubin 0.9 mg/dL (0.2-1.3); Total Protein 5.3 g/dL (6.3-8.2)
[2017-07-26] MEDS: PANTOPRAZOLE 40 MG/10 ML VIAL IV SCH (08:27)
[2017-07-26] MEDS: ENOXAPARIN 40 MG/0.4 ML SYRINGE SQ SCH (08:27)
[2017-07-26] MEDS: DEXAMETHASONE 4 MG TAB PO SCH ×3 (08:28→21:31)
[2017-07-26] MEDS: CALCIUM CARB-VIT D 500MG-200UN 1 EACH TAB PO SCH (08:28)
[2017-07-26] MEDS: DOCUSATE 100 MG CAP PO SCH ×2 (08:28→20:24)
[2017-07-26] MEDS: PIPERACILLIN-TAZOBACTAM 3.375 GM in DEXTROSE/WATER 1 50ML.BAG IVPB SCH ×2 (08:28→16:16)
[2017-07-26] MEDS: IPRATROPIUM-ALBUTEROL 3 ML NEB INHALATION SCH ×4 (08:30→21:07)
[2017-07-26 09:53] LABS: Uric Acid 10.5 mg/dL (3.5-8.5)
--- NOTE | 2017-07-26 10:19 | P.PN ---
Subjective Progress Note Date: 07/26/17 Principal diagnosis: Metastatic Prostate Cancer No acute complaints patient sitting up in chair. Objective - Vital Signs Vital signs: Vital Signs Temp 97.1 F L 07/25/17 23:00 Pulse 98 07/25/17 23:00 Resp 16 07/26/17 00:00 BP 132/71 07/25/17 23:00 Pulse Ox 96 07/25/17 23:00 Intake & Output 07/25/17 07/26/17 07/26/17 18:59 06:59 18:59 Intake Total 1760 2330 Output Total 175 480 Balance 1585 1850 Intake: Intake, IV Titration 850 450 Amount Piperacillin-Tazobactam 3 50 50 .375 gm In Dextrose/Water 1 50ml.bag @ 12.5 mls/hr IVPB Q8HR [facility] Rx#: [id number] Sodium Chloride 0.9% 1, 800 400 000 ml @ 100 mls/hr IV . Q10H [facility] Rx#:[id number] Oral 600 1880 Blood Product 310 Rc Pheresis As-3 Unit 310 [id number] Output: Urine 175 480 Other: Voiding Method Toilet Toilet # Voids 2 1 - Constitutional General appearance: Present: cooperative, no acute distress - EENT Eyes: Present: EOMI, normal appearance ENT: Present: normal oropharynx - Neck Neck: Present: normal ROM - Respiratory Respiratory: bilateral: diminished (Bilateral Lower lobes, no acute distress) - Cardiovascular Rhythm: regular - Gastrointestinal General gastrointestinal: Present: distended, normal bowel sounds, soft - Labs CBC & Chem 7: 07/26/17 07:34 07/26/17 07:34 Labs: Abnormal Lab Results - Last 24 Hours (Table) 07/24/17 07/25/17 07/26/17 Range/Units 08:53 06:47 07:34 RBC 2.70 L (4.30-5.90) m/uL Hgb 6.9 L* (13.0-17.5) gm/dL Hct 23.4 L (39.0-53.0) % MCHC 29.5 L (31.0-37.0) g/dL RDW 20.4 H (11.5-15.5) % Plt Count 116 L (150-450) k/uL Lymphocytes # (Manual) 0.79 L (1.0-4.8) k/uL Metamyelocytes # (Man) 0.09 H (0) k/uL Myelocytes # (Manual) 0.18 H (0) k/uL Potassium 5.3 H (3.5-5.1) mmol/L Chloride 113 H (98-107) mmol/L Carbon Dioxide 17 L (22-30) mmol/L BUN 44 H (9-20) mg/dL Creatinine 2.26 H (0.66-1.25) mg/dL Calcium 8.0 L (8.4-10.2) mg/dL AST 103 H (17-59) U/L Alkaline Phosphatase 229 H (38-126) U/L Total Protein 5.3 L (6.3-8.2) g/dL Albumin 2.7 L (3.5-5.0) g/dL Crossmatch See Detail Microbiology - Last 24 Hours (Table) 07/23/17 10:40 Blood Culture - Preliminary Blood No Growth after 48 hours Assessment and Plan (1) Prostate cancer Narrative/Plan: 1. Metastatic Prostate cancer - Bone mets and Right Pleural Mass (Reduced in size by half after taxotere), although PSA continued to rise and now with diffuse bony mets 2. Currently receiving Zometa as outpatient, will begin Jevtana as next line therapy to resistant disease after recovers and discharged 3. Decadron 4mg po wean to BID 4. Continue supportive pain management, he is status post XRT to pelvis. Current Visit: Yes Status: Acute Code(s): C61 - MALIGNANT NEOPLASM OF PROSTATE SNOMED Code(s): 399826747 (2) Anemia Narrative/Plan: 1. Multifactorial secondary to bone marrow involvement, recent radiation, and most likely acute blood loss 2. Check CBC daily, Transfuse hgb less than 7 Current Visit: Yes Status: Acute Code(s): D64.9 - ANEMIA, UNSPECIFIED SNOMED Code(s): 801210598 (3) Thrombocytopenia Narrative/Plan: 1. Secondary to underlying liver disease and/or potential bone marrow involvement 2. Monitor closely, supportive transfusion if less than 10 or less than 50 with evidence of bleeding. If continues to drop will provide further work-up Current Visit: Yes Status: Acute Code(s): D69.6 - THROMBOCYTOPENIA, UNSPECIFIED SNOMED Code(s): 705181175 (4) KSENIA (acute kidney injury) Narrative/Plan: 1. Per nephrology, monitor closely. 2. Check UA, Bladder Scan and Ultrasound of kidney Current Visit: Yes Status: Acute Code(s): N17.9 - ACUTE KIDNEY FAILURE, UNSPECIFIED SNOMED Code(s): 29765711 (5) Appendicitis Narrative/Plan: 1. Status Post Appendectomy and liver biopsy. Current Visit: Yes Status: Acute Code(s): K37 - UNSPECIFIED APPENDICITIS SNOMED Code(s): 77601507 (6) Bony metastasis Current Visit: No Status: Acute Code(s): C79.51 - SECONDARY MALIGNANT NEOPLASM OF BONE SNOMED Code(s): 79516890 Plan: Physician Attest: I have performed the complete history and physical exam on this patient and discussed with Kristina Meyer who has documented as a scribe, agree with above.
[2017-07-26] MEDS ORDERED: DEXTROSE 50%-WATER 50 ML SYRINGE IVP STA (10:23)
[2017-07-26] MEDS ORDERED: INSULIN REGULAR 100 UNIT/ML VIAL IV ONE (10:23)
--- NOTE | 2017-07-26 10:59 | P.PN ---
Subjective Progress Note Date: 07/26/17 Principal diagnosis: Abdominal pain Patient doing fairly well today. He says his pain is improving. He is afebrile. Pathology results are pending from liver biopsy and appendix. Hemoglobin improved at 8.8. Abdominal ultrasound ordered because of rising creatinine. Denies nausea or vomiting. Objective - Vital Signs Vital signs: Vital Signs Temp 97.6 F 07/26/17 07:00 Pulse 88 07/26/17 08:42 Resp 16 07/26/17 08:00 BP 108/62 07/26/17 07:00 Pulse Ox 99 07/26/17 08:30 Intake & Output 07/25/17 07/26/17 07/26/17 18:59 06:59 18:59 Intake Total 1760 2330 Output Total 175 480 Balance 1585 1850 Intake: Intake, IV Titration 850 450 Amount Piperacillin-Tazobactam 3 50 50 .375 gm In Dextrose/Water 1 50ml.bag @ 12.5 mls/hr IVPB Q8HR [facility] Rx#: [id number] Sodium Chloride 0.9% 1, 800 400 000 ml @ 100 mls/hr IV . Q10H [facility] Rx#:[id number] Oral 600 1880 Blood Product 310 Rc Pheresis As-3 Unit 310 [id number] Output: Urine 175 480 Other: Voiding Method Toilet Toilet Toilet Urinal # Voids 2 1 - Exam Abdomen: Soft, nondistended, mild tenderness at incision sites - Labs CBC & Chem 7: 07/26/17 07:34 07/26/17 07:34 Labs: Abnormal Lab Results - Last 24 Hours (Table) 07/24/17 07/26/17 07/26/17 Range/Units 08:53 07:34 07:34 WBC 11.5 H (3.8-10.6) k/uL RBC 3.26 L (4.30-5.90) m/uL Hgb 8.8 L D (13.0-17.5) gm/dL Hct 27.5 L (39.0-53.0) % RDW 19.8 H (11.5-15.5) % Plt Count 102 L (150-450) k/uL Potassium 5.3 H (3.5-5.1) mmol/L Chloride 113 H (98-107) mmol/L Carbon Dioxide 17 L (22-30) mmol/L BUN 44 H (9-20) mg/dL Creatinine 2.26 H (0.66-1.25) mg/dL Uric Acid (3.5-8.5) mg/dL Calcium 8.0 L (8.4-10.2) mg/dL AST 103 H (17-59) U/L Alkaline Phosphatase 229 H (38-126) U/L Lactate Dehydrogenase (313-618) U/L Total Protein 5.3 L (6.3-8.2) g/dL Albumin 2.7 L (3.5-5.0) g/dL Crossmatch See Detail 07/26/17 Range/Units 07:34 WBC (3.8-10.6) k/uL RBC (4.30-5.90) m/uL Hgb (13.0-17.5) gm/dL Hct (39.0-53.0) % RDW (11.5-15.5) % Plt Count (150-450) k/uL Potassium (3.5-5.1) mmol/L Chloride (98-107) mmol/L Carbon Dioxide (22-30) mmol/L BUN (9-20) mg/dL Creatinine (0.66-1.25) mg/dL Uric Acid 10.5 H (3.5-8.5) mg/dL Calcium (8.4-10.2) mg/dL AST (17-59) U/L Alkaline Phosphatase (38-126) U/L Lactate Dehydrogenase 1291 H (313-618) U/L Total Protein (6.3-8.2) g/dL Albumin (3.5-5.0) g/dL Crossmatch Microbiology - Last 24 Hours (Table) 07/23/17 10:40 Blood Culture - Preliminary Blood No Growth after 48 hours Assessment and Plan (1) Abdominal pain Narrative/Plan: Will advance diet at this time. Await ultrasound already ordered. Await pathology results from liver biopsy. We'll transfer care to medicine if they accept. Current Visit: Yes Status: Acute Code(s): R10.9 - UNSPECIFIED ABDOMINAL PAIN SNOMED Code(s): 99946728
--- NOTE | 2017-07-26 11:04 | US ---
EXAMINATION TYPE: US kidneys/renal and bladder DATE OF EXAM: 07/26/2017 COMPARISON: CT CLINICAL HISTORY: Renal failure , R/O Hydronephrosis. Renal failure, possible hydro, prostate CA mets EXAM MEASUREMENTS: Right Kidney: 11.7 x 5.1 x 5.6 cm Left Kidney: 10.0 x 5.2 x 5.7 cm Right Kidney: No evidence of hydro, echogenic focus upper pole= 6mm Left Kidney: No evidence of hydro Bladder: Possible thickened wall Bilateral Jets seen: No Grossly heterogeneous liver, known mets IMPRESSION: 1. PROBABLE HEPATIC METASTASES. 2. ANGIOMYOLIPOMA VERSUS NONSHADOWING CALCULUS, UPPER POLE, RIGHT KIDNEY.
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
[2017-07-26 11:30] LABS: Band Neutrophils % 9 %; Eosinophils # (M) 0.11 k/uL (0-0.7); Lymphocytes # (M) 1.33 k/uL (1.0-4.8); Metamyelocytes # (M) 0.11 k/uL (0); Metamyelocytes % 1 %; Monocytes # (M) 0.33 k/uL (0-1.0); Myelocytes # (M) 0.33 k/uL (0); Myelocytes % 3 %; Neutrophils % (M) 72 %; Nucleated Red Blood Cells 4 /100 WBC (0-0); Total Cells Counted 200; WBC 11.1 k/uL (3.8-10.6)
[2017-07-26] MEDS: SODIUM BICARBONATE TAB 650 MG TAB PO SCH ×2 (11:30→21:30)
[2017-07-26 11:46] LABS: INR 1.2 (<1.2); Prothrombin Time 11.2 sec (9.0-12.0)
[2017-07-26] MEDS: MORPHINE SULFATE/PF 10MG/10ML VL IVP PRN ×2 (13:02→21:32)
[2017-07-26] MEDS: MULTIVITAMINS, THERA 1 EACH TAB PO SCH (13:24)
[2017-07-26] MEDS: ALLOPURINOL 100 MG TAB PO SCH (13:24)
--- NOTE | 2017-07-26 16:09 | PN ---
PROGRESS NOTE DATE OF SERVICE: 07/26/2017 Patient is a 61-year-old male patient admitted with abdominal pain, underwent appendectomy and liver biopsy on July 24. He was found to have hemorrhagic fluid in the peritoneal cavity. While in the hospital. hemoglobin dropped down to 6.9. He was transfused. He does have metastatic prostate cancer with mets to bone. Follows up with oncology as an outpatient. Renal function has been deteriorating and Nephrology has been consulted. Patient is sitting up in his bed. He is in no acute distress. VITAL SIGNS: Temperature of 97.6, pulse 102, respirations 16, blood pressure 18/62, O2 saturation 99% on room air HEENT atraumatic, normocephalic. Pupils equal and reactive to light. Extraocular movements intact. Buccal mucosa is fair. Neck is supple. No goiter, lymphadenopathy. JVD is negative. No carotid bruit heard. Lungs are clear to auscultate. No rales, rhonchi, or wheezes. Heart is regular rate and rhythm without any murmurs gallop rhythm. Abdomen is soft and nontender. Bowel sounds positive. Extremities 1+ edema. Pulses are palpable. Neurological examination patient is awake, alert, oriented x3. No gross motor or sensory deficit. LABS: CBC, white blood count of 11.5, hemoglobin 8.8, hematocrit 27.5, and platelet count of 102. Chemical profile sodium 141, potassium 5.3, chloride 113, bicarb 17, BUN 44, creatinine 2.2 gradually up trending. ASSESSMENT: 1. Non-oliguric acute renal injury secondary to ischemic acute tubular necrosis, secondary to acute anemia. Nephrology has been consulted. Nephro Service recommending ultrasound of kidney, continue with IV and normal saline at 100 mL an hour. Nephro Service also recommended adding allopurinol 100 mg daily for hyperuricemia. Patient is started on oral sodium bicarbonate 1300 mg twice a day along with IV insulin and D50 for hyperkalemia with a plan to monitor and repeat calcium levels. 2. Abdominal pain, status post cholecystectomy and liver biopsy which is pending. 3. Metastatic prostate cancer with bone metastasis and right pleural mass. PSA is continuing to rise and patient has diffuse bony METS. Oncology is following and plan is to continue treatment as outpatient and supportive pain management at this point. 4. Liver cirrhosis, secondary to ETOH abuse. 5. Severe anemia, chronic disease versus postop. 6. Hyperkalemia, treatment as per Nephrology. Will monitor electrolytes. 7. Mild protein calorie malnutrition. Will continue current medications. Patient's hemoglobin is stable so far. Further recommendations per Oncology, Nephro and Hematology Service. MMODL / IJN: [id number] /
[2017-07-26] MEDS: SODIUM CHLORIDE 0.9% 1,000 ML IV SCH ×2 (20:21→20:28)
[2017-07-26] MEDS: POLYETHYLENE GLYCOL 3350 17 GM POWD.PACK PO SCH (20:24)
[2017-07-27] MEDS: PIPERACILLIN-TAZOBACTAM 3.375 GM in DEXTROSE/WATER 1 50ML.BAG IVPB SCH ×4 (00:18→23:48)
[2017-07-27] MEDS: MORPHINE SULFATE/PF 10MG/10ML VL IVP PRN (00:20)
[2017-07-27] MEDS: SODIUM CHLORIDE 0.9% 1,000 ML IV SCH ×2 (05:52→19:47)
[2017-07-27 07:49] LABS: Albumin 2.5 g/dL (3.5-5.0); Anisocytosis Moderate; Calcium 7.9 mg/dL (8.4-10.2); HCT 25.6 % (39.0-53.0); HGB 7.9 gm/dL (13.0-17.5); Hypochromasia Moderate; MCH 26.3 pg (25.0-35.0); MCHC 30.7 g/dL (31.0-37.0); MCV 85.8 fL (80.0-100.0); Mean Platelet Volume 10.2; Microcytosis Slight; Poikilocytosis Slight; RBC 2.99 m/uL (4.30-5.90); RDW 20.2 % (11.5-15.5); Total Protein 5.1 g/dL (6.3-8.2)
[2017-07-27 07:51] LABS: Platelet Count 86 k/uL (150-450)
[2017-07-27] MEDS: CALCIUM CARB-VIT D 500MG-200UN 1 EACH TAB PO SCH (08:08)
[2017-07-27] MEDS: PANTOPRAZOLE 40 MG/10 ML VIAL IV SCH (08:08)
[2017-07-27] MEDS: DEXAMETHASONE 4 MG TAB PO SCH ×3 (08:08→23:49)
[2017-07-27] MEDS: SODIUM BICARBONATE TAB 650 MG TAB PO SCH ×2 (08:08→20:56)
[2017-07-27] MEDS: DOCUSATE 100 MG CAP PO SCH ×2 (08:09→20:56)
[2017-07-27] MEDS: ENOXAPARIN 40 MG/0.4 ML SYRINGE SQ SCH (08:09)
[2017-07-27] MEDS: ALLOPURINOL 100 MG TAB PO SCH (08:09)
[2017-07-27] MEDS: IPRATROPIUM-ALBUTEROL 3 ML NEB INHALATION SCH ×4 (08:30→19:24)
[2017-07-27 09:07] LABS: Band Neutrophils % 6 %; Metamyelocytes % 3 %; Myelocytes % 3 %; Neutrophils % (M) 73 %; Nucleated Red Blood Cells 2 /100 WBC (0-0); Total Cells Counted 200
[2017-07-27 09:08] LABS: Eosinophils # (M) 0.23 k/uL (0-0.7); Lymphocytes # (M) 0.94 k/uL (1.0-4.8); Metamyelocytes # (M) 0.35 k/uL (0); Myelocytes # (M) 0.35 k/uL (0); WBC 11.7 k/uL (3.8-10.6)
--- NOTE | 2017-07-27 11:16 | P.PN ---
Subjective Patient is seen in follow-up for acute kidney injury. His basic creatinine is 1 and was elevated at 2.27 on admission. It is down to 1.68 today. Patient underwent appendectomy and liver biopsy in July 24. His hemoglobin was noted to be low at 6.9 on July 25 for which she did receive blood transfusion. Hemoglobin subsequently improved. He is currently resting in bed. Oral intake is improving. He once his diet advanced. No melena or hematochezia. Vital signs are stable. General: The patient appeared well nourished and normally developed. HEENT: Head exam is unremarkable. Neck is without jugular venous distension. LUNGS: Lungs are clear to auscultation and percussion. Breath sounds decreased. HEART: Rate and Rhythm are regular. First and second heart sounds normal. No murmurs, rubs or gallops. ABDOMEN: Abdominal exam reveals normal bowel sounds. Non-tender and non- distended. No evidence of peritonitis. EXTREMITITES: No clubbing, cyanosis, or edema. Objective - Vital Signs Vital signs: Vital Signs Temp 98.6 F 07/27/17 07:00 Pulse 76 07/27/17 08:45 Resp 16 07/27/17 08:00 BP 127/68 07/27/17 07:00 Pulse Ox 97 07/27/17 07:00 Intake & Output 07/26/17 07/27/17 07/27/17 18:59 06:59 18:59 Intake Total 700 2040 Output Total 370 Balance 700 1670 Intake: Intake, IV Titration 700 850 Amount Piperacillin-Tazobactam 3 50 .375 gm In Dextrose/Water 1 50ml.bag @ 12.5 mls/hr IVPB Q8HR [facility] Rx#: [id number] Sodium Chloride 0.9% 1, 700 800 000 ml @ 100 mls/hr IV . Q10H [facility] Rx#:[id number] Oral 1190 Output: Urine 370 Other: Voiding Method Toilet Toilet Toilet Urinal Urinal Urinal # Voids 2 - Labs CBC & Chem 7: 07/27/17 06:47 07/27/17 10:37 Labs: Abnormal Lab Results - Last 24 Hours (Table) 07/26/17 07/26/17 07/27/17 Range/Units 07:34 07:34 06:47 WBC 11.1 H 11.7 H (3.8-10.6) k/uL RBC 2.99 L (4.30-5.90) m/uL Hgb 7.9 L (13.0-17.5) gm/dL Hct 25.6 L (39.0-53.0) % MCHC 30.7 L (31.0-37.0) g/dL RDW 20.2 H (11.5-15.5) % Plt Count 86 L (150-450) k/uL Neutrophils # (Manual) 8.90 H 9.20 H (1.3-7.7) k/uL Lymphocytes # (Manual) 0.94 L (1.0-4.8) k/uL Metamyelocytes # (Man) 0.11 H 0.35 H (0) k/uL Myelocytes # (Manual) 0.33 H 0.35 H (0) k/uL Nucleated RBCs 4 H 2 H (0-0) /100 WBC INR 1.2 H (<1.2) Fibrinogen 554 H (200-500) mg/dL Potassium (3.5-5.1) mmol/L Chloride (98-107) mmol/L Carbon Dioxide (22-30) mmol/L BUN (9-20) mg/dL Creatinine (0.66-1.25) mg/dL Calcium (8.4-10.2) mg/dL AST (17-59) U/L Alkaline Phosphatase (38-126) U/L Total Protein (6.3-8.2) g/dL Albumin (3.5-5.0) g/dL 07/27/17 Range/Units 06:47 WBC (3.8-10.6) k/uL RBC (4.30-5.90) m/uL Hgb (13.0-17.5) gm/dL Hct (39.0-53.0) % MCHC (31.0-37.0) g/dL RDW (11.5-15.5) % Plt Count (150-450) k/uL Neutrophils # (Manual) (1.3-7.7) k/uL Lymphocytes # (Manual) (1.0-4.8) k/uL Metamyelocytes # (Man) (0) k/uL Myelocytes # (Manual) (0) k/uL Nucleated RBCs (0-0) /100 WBC INR (<1.2) Fibrinogen (200-500) mg/dL Potassium 6.0 H (3.5-5.1) mmol/L Chloride 115 H (98-107) mmol/L Carbon Dioxide 18 L (22-30) mmol/L BUN 37 H (9-20) mg/dL Creatinine 1.68 H (0.66-1.25) mg/dL Calcium 7.9 L (8.4-10.2) mg/dL AST 125 H (17-59) U/L Alkaline Phosphatase 229 H (38-126) U/L Total Protein 5.1 L (6.3-8.2) g/dL Albumin 2.5 L (3.5-5.0) g/dL Microbiology - Last 24 Hours (Table) 07/23/17 10:40 Blood Culture - Preliminary Blood No Growth after 72 hours Assessment and Plan Plan: Assessment: #1. Nonoliguric acute kidney injury secondary to ischemic ATN secondary to acute anemia. Creatinine peaked at 2.27 and is down to 1.68 today. Baseline creatinine is near 1. Urinalysis is relatively benign. No evidence of hydronephrosis noted on renal ultrasound. #2. Prostate cancer with metastatic disease to the bone being followed by oncology. #3. Acute blood loss anemia status post blood transfusion. Hemoglobin improved. #4. Acute appendicitis status post appendectomy and liver biopsy in July 24. Question of cirrhosis. #5. Hyperkalemia secondary to acute kidney injury and metabolic acidosis. Improved. #6. Hyperuricemia with rare uric acid crystals noted on the urinalysis. Need to monitor for urate nephropathy. #7. Metabolic acidosis secondary to acute kidney injury and IV fluids. Plan: I will decrease rate of normal saline to 50 mL an hour. Advance diet per surgical recommendations. Continue allopurinol 100 mg once daily. Maintain oral sodium bicarbonate 1300 mg twice daily. Avoid nephrotoxic agents and hypotensive episodes. Potassium of 6 from this morning was a hemolyzed sample. Repeat potassium is in the normal range. Repeat electrolytes in the morning.
--- NOTE | 2017-07-27 12:36 | P.PN ---
Subjective Progress Note Date: 07/27/17 Principal diagnosis: Abdominal pain Patient has no new complaints. Tolerating his diet. White blood cell count 11.7, hemoglobin 7.9. Objective - Vital Signs Vital signs: Vital Signs Temp 98.6 F 07/27/17 07:00 Pulse 72 07/27/17 12:15 Resp 16 07/27/17 08:00 BP 127/68 07/27/17 07:00 Pulse Ox 97 07/27/17 07:00 Intake & Output 07/26/17 07/27/17 07/27/17 18:59 06:59 18:59 Intake Total 700 2040 Output Total 370 Balance 700 1670 Intake: Intake, IV Titration 700 850 Amount Piperacillin-Tazobactam 3 50 .375 gm In Dextrose/Water 1 50ml.bag @ 12.5 mls/hr IVPB Q8HR [facility] Rx#: [id number] Sodium Chloride 0.9% 1, 700 800 000 ml @ 100 mls/hr IV . Q10H [facility] Rx#:[id number] Oral 1190 Output: Urine 370 Other: Voiding Method Toilet Toilet Toilet Urinal Urinal Urinal # Voids 2 - Exam Abdomen: Soft, nondistended, nontender, incisions clean and dry - Labs CBC & Chem 7: 07/27/17 06:47 07/27/17 10:37 Labs: Abnormal Lab Results - Last 24 Hours (Table) 07/27/17 07/27/17 Range/Units 06:47 06:47 WBC 11.7 H (3.8-10.6) k/uL RBC 2.99 L (4.30-5.90) m/uL Hgb 7.9 L (13.0-17.5) gm/dL Hct 25.6 L (39.0-53.0) % MCHC 30.7 L (31.0-37.0) g/dL RDW 20.2 H (11.5-15.5) % Plt Count 86 L (150-450) k/uL Neutrophils # (Manual) 9.20 H (1.3-7.7) k/uL Lymphocytes # (Manual) 0.94 L (1.0-4.8) k/uL Metamyelocytes # (Man) 0.35 H (0) k/uL Myelocytes # (Manual) 0.35 H (0) k/uL Nucleated RBCs 2 H (0-0) /100 WBC Potassium 6.0 H (3.5-5.1) mmol/L Chloride 115 H (98-107) mmol/L Carbon Dioxide 18 L (22-30) mmol/L BUN 37 H (9-20) mg/dL Creatinine 1.68 H (0.66-1.25) mg/dL Calcium 7.9 L (8.4-10.2) mg/dL AST 125 H (17-59) U/L Alkaline Phosphatase 229 H (38-126) U/L Total Protein 5.1 L (6.3-8.2) g/dL Albumin 2.5 L (3.5-5.0) g/dL Microbiology - Last 24 Hours (Table) 07/23/17 10:40 Blood Culture - Preliminary Blood No Growth after 72 hours Assessment and Plan (1) Abdominal pain Narrative/Plan: continue diet as tolerated. Increase activity levels. Await biopsies results. Current Visit: Yes Status: Acute Code(s): R10.9 - UNSPECIFIED ABDOMINAL PAIN SNOMED Code(s): 21614991
[2017-07-27] MEDS: MULTIVITAMINS, THERA 1 EACH TAB PO SCH (12:48)
--- NOTE | 2017-07-27 15:43 | PN ---
PROGRESS NOTE DATE OF SERVICE: 07/27/2017 Patient is sitting up in bed. He is comfortable. He denies any complaints. Vital signs: Temperature 98.6, pulse 70, respirations 16, blood pressure 127/68, O2 saturation 97%. HEENT: Atraumatic, normocephalic. Pupils equal and reactive to light. Extraocular movements intact. Buccal mucosa fair. Neck is supple. No goiter or lymphadenopathy. JVD is negative. No carotid bruit heard. Lungs are clear to auscultate. No rales, rhonchi, or wheezes. Heart is regular rate and rhythm without any murmurs or gallop rhythm. Abdomen is soft, nontender, nondistended. Incision site is clean. Bowel sounds are positive. Extremities no edema clubbing cyanosis. Neurological examination: Cranial nerves 2-12 grossly intact. No gross motor or sensory deficit. LAB: CBC, white blood count of 11.7, hemoglobin 7.9, hematocrit 25.6, and platelet count of 86. Chemical profile: Sodium of 141, potassium 6.2, which was found to be a hemolyzed specimen and repeat potassium was 4.9, chloride 115, bicarb 18, BUN 37, creatinine of 1.68, which is improved from 2.26 yesterday. AST of 125, slightly elevated ALT, remains in normal range. ASSESSMENT: 1. Nonoliguric acute renal injury secondary to ischemic acute tubular necrosis secondary to acute anemia. Nephrology is on board. The patient's IV fluids have been decreased to 50 mL an hour. Plan is to repeat electrolytes, BUN, and creatinine for tomorrow morning. 2. Abdominal pain status post cholecystectomy and liver biopsy, which is pending. The surgical service is following and the plan is to advance diet as tolerated and increase activity. Biopsy results are still pending. 3. Metastatic prostatic cancer with bone metastasis and right pleural mass. PSAs continue to write. The patient does have diffuse bony mets. Oncology is following and plan to continue treatment. Also patient has supportive pain management at this point. 4. Liver cirrhosis secondary to ETOH abuse. 5. Severe anemia of chronic disease versus postop remains stable. 6. Hyperkalemia was secondary to hemolysis. Repeat the sodium level. Repeat potassium levels are normal. 7. Mild protein calorie malnutrition. Patient is on clear liquid diet with a plan to advance as tolerated. Possible discharge in next 24-48 hours pending clearance from surgical service. MMODL / IJN: [id number] /
[2017-07-27 16:06] LABS: Iron Saturation 24.88 (15.00-50.00)
[2017-07-27] MEDS: POLYETHYLENE GLYCOL 3350 17 GM POWD.PACK PO SCH (20:56)
[2017-07-27 23:12] LABS: Anisocytosis Slight; HCT 23.5 % (39.0-53.0); HGB 7.5 gm/dL (13.0-17.5); Hypochromasia Slight; MCH 27.4 pg (25.0-35.0); MCHC 32.2 g/dL (31.0-37.0); MCV 85.2 fL (80.0-100.0); Mean Platelet Volume 8.4; Poikilocytosis Slight; RBC 2.75 m/uL (4.30-5.90); RDW 19.6 % (11.5-15.5)
[2017-07-27 23:31] LABS: Band Neutrophils % 18 %; Metamyelocytes % 7 %; Myelocytes % 2 %; Neutrophils % (M) 59 %; Nucleated Red Blood Cells 4 /100 WBC (0-0); Total Cells Counted 200
[2017-07-27 23:32] LABS: Metamyelocytes # (M) 0.71 k/uL (0); Monocytes # (M) 0.81 k/uL (0-1.0); WBC 10.1 k/uL (3.8-10.6)
[2017-07-27 23:33] LABS: Platelet Count 67 k/uL (150-450)
[2017-07-28 08:00] LABS: Anisocytosis Moderate; HCT 25.8 % (39.0-53.0); HGB 7.7 gm/dL (13.0-17.5); Hypochromasia Moderate; MCH 25.6 pg (25.0-35.0); MCHC 29.9 g/dL (31.0-37.0); MCV 85.7 fL (80.0-100.0); Microcytosis Slight; Poikilocytosis Slight; RBC 3.01 m/uL (4.30-5.90); RDW 20.2 % (11.5-15.5)
[2017-07-28 08:01] LABS: Platelet Count 69 k/uL (150-450)
[2017-07-28] MEDS: PANTOPRAZOLE 40 MG/10 ML VIAL IV SCH (08:04)
[2017-07-28] MEDS: PIPERACILLIN-TAZOBACTAM 3.375 GM in DEXTROSE/WATER 1 50ML.BAG IVPB SCH ×3 (08:04→23:38)
[2017-07-28] MEDS: SODIUM BICARBONATE TAB 650 MG TAB PO SCH ×2 (08:04→20:22)
[2017-07-28] MEDS: DOCUSATE 100 MG CAP PO SCH (08:05)
[2017-07-28] MEDS: DEXAMETHASONE 4 MG TAB PO SCH ×2 (08:05→20:22)
[2017-07-28] MEDS: ALLOPURINOL 100 MG TAB PO SCH (08:06)
[2017-07-28] MEDS: CALCIUM CARB-VIT D 500MG-200UN 1 EACH TAB PO SCH (08:06)
[2017-07-28 08:09] LABS: Albumin 2.5 g/dL (3.5-5.0); Calcium 8.2 mg/dL (8.4-10.2); Potassium 5.1 mmol/L (3.5-5.1); Total Bilirubin 0.8 mg/dL (0.2-1.3); Total Protein 4.8 g/dL (6.3-8.2)
[2017-07-28] MEDS: IPRATROPIUM-ALBUTEROL 3 ML NEB INHALATION SCH ×4 (09:40→20:58)
[2017-07-28] MEDS ORDERED: FUROSEMIDE 10 MG/ML 4 ML VIAL IV STA (10:00)
--- NOTE | 2017-07-28 10:00 | P.PN ---
Subjective Patient is seen in follow-up for acute kidney injury. His baseline creatinine is 1 and was elevated at 2.27 on admission. It is down to 1.43 today. Patient underwent appendectomy and liver biopsy in July 24. His hemoglobin was noted to be low at 6.9 on July 25 for which he did receive blood transfusion. Hemoglobin subsequently improved. He is currently resting in bed. Oral intake is improving. No melena or hematochezia. Complains of abdominal distension and edema. Vital signs are stable. General: The patient appeared well nourished and normally developed. HEENT: Head exam is unremarkable. Neck is without jugular venous distension. LUNGS: Lungs are clear to auscultation and percussion. Breath sounds decreased. HEART: Rate and Rhythm are regular. First and second heart sounds normal. No murmurs, rubs or gallops. ABDOMEN: Abdominal exam reveals normal bowel sounds. Non-tender and non- distended. No evidence of peritonitis. EXTREMITITES: 1+ edema. Objective - Vital Signs Vital signs: Vital Signs Temp 98.3 F 07/28/17 07:00 Pulse 76 07/28/17 07:00 Resp 16 07/28/17 07:00 BP 136/70 07/28/17 07:00 Pulse Ox 96 07/28/17 07:00 Intake & Output 07/27/17 07/28/17 07/28/17 18:59 06:59 18:59 Intake Total 400 240 Balance 400 240 Intake: Intake, IV Titration 400 Amount Piperacillin-Tazobactam 3 50 .375 gm In Dextrose/Water 1 50ml.bag @ 12.5 mls/hr IVPB Q8HR [facility] Rx#: [id number] Sodium Chloride 0.9% 1, 350 000 ml @ 50 mls/hr IV . Q20H [facility] Rx#:[id number] Oral 240 Other: Voiding Method Toilet Toilet Toilet Urinal Urinal Urinal # Voids 2 - Labs CBC & Chem 7: 07/28/17 07:15 07/28/17 07:15 Labs: Abnormal Lab Results - Last 24 Hours (Table) 07/27/17 07/27/17 07/28/17 Range/Units 10:37 22:33 07:15 WBC 11.3 H (3.8-10.6) k/uL RBC 2.75 L 3.01 L (4.30-5.90) m/uL Hgb 7.5 L 7.7 L (13.0-17.5) gm/dL Hct 23.5 L 25.8 L (39.0-53.0) % MCHC 29.9 L (31.0-37.0) g/dL RDW 19.6 H 20.2 H (11.5-15.5) % Plt Count 67 L 69 L (150-450) k/uL Lymphocytes # (Manual) 0.40 L (1.0-4.8) k/uL Metamyelocytes # (Man) 0.71 H (0) k/uL Myelocytes # (Manual) 0.20 H (0) k/uL Nucleated RBCs 4 H (0-0) /100 WBC Chloride (98-107) mmol/L Carbon Dioxide (22-30) mmol/L BUN (9-20) mg/dL Creatinine (0.66-1.25) mg/dL Glucose (74-99) mg/dL Calcium (8.4-10.2) mg/dL Iron 53 L (65-175) ug/dL TIBC 213 L (228-460) ug/dL Ferritin 2992.1 H (22.0-322.0) ng/mL AST (17-59) U/L ALT (21-72) U/L Alkaline Phosphatase (38-126) U/L Total Protein (6.3-8.2) g/dL Albumin (3.5-5.0) g/dL 07/28/17 Range/Units 07:15 WBC (3.8-10.6) k/uL RBC (4.30-5.90) m/uL Hgb (13.0-17.5) gm/dL Hct (39.0-53.0) % MCHC (31.0-37.0) g/dL RDW (11.5-15.5) % Plt Count (150-450) k/uL Lymphocytes # (Manual) (1.0-4.8) k/uL Metamyelocytes # (Man) (0) k/uL Myelocytes # (Manual) (0) k/uL Nucleated RBCs (0-0) /100 WBC Chloride 114 H (98-107) mmol/L Carbon Dioxide 20 L (22-30) mmol/L BUN 31 H (9-20) mg/dL Creatinine 1.43 H (0.66-1.25) mg/dL Glucose 73 L (74-99) mg/dL Calcium 8.2 L (8.4-10.2) mg/dL Iron (65-175) ug/dL TIBC (228-460) ug/dL Ferritin (22.0-322.0) ng/mL AST 165 H (17-59) U/L ALT 77 H (21-72) U/L Alkaline Phosphatase 312 H (38-126) U/L Total Protein 4.8 L (6.3-8.2) g/dL Albumin 2.5 L (3.5-5.0) g/dL Microbiology - Last 24 Hours (Table) 07/23/17 10:40 Blood Culture - Preliminary Blood No Growth after 96 hours Assessment and Plan Plan: Assessment: #1. Nonoliguric acute kidney injury secondary to ischemic ATN secondary to acute anemia. Creatinine peaked at 2.27 and is down to 1.43 today. Baseline creatinine is near 1. Urinalysis is relatively benign. No evidence of hydronephrosis noted on renal ultrasound. #2. Prostate cancer with metastatic disease to the bone being followed by oncology. #3. Acute blood loss anemia status post blood transfusion. Hemoglobin improved. #4. Acute appendicitis status post appendectomy and liver biopsy in July 24. Question of cirrhosis. #5. Hyperkalemia secondary to acute kidney injury and metabolic acidosis. Improved. #6. Hyperuricemia with rare uric acid crystals noted on the urinalysis. Need to monitor for urate nephropathy. #7. Metabolic acidosis secondary to acute kidney injury and IV fluids. Improved. Plan: Heplock IVFs. Renal diet. Lasix 40 mg IV once today. Check abdomina uls - discussed with surgical team. Continue allopurinol 100 mg once daily. Maintain oral sodium bicarbonate 1300 mg twice daily. Avoid nephrotoxic agents and hypotensive episodes. Repeat electrolytes in the morning.
--- NOTE | 2017-07-28 10:51 | P.PN ---
Subjective Progress Note Date: 07/28/17 61-year-old male being seen in follow-up visit. Patient is noted to have this morning significant abdominal distention firm few hypoactive bowel tones with purple ecchymotic bruising from the umbilicus down. Patient stated it started last evening he noted that his abdomen was getting more distended and the bruising started. The labs were noted this morning hemoglobin 7.7 7.5 the day before hemoglobin on July 25 down to 6.9 did receive 1 unit of packed red blood cells potassium 5.1 creatinine 1.4 afebrile postop on July 24 laparoscopic appendectomy and liver biopsy for epigastric right lower quadrant pain noted operative report indicated hemorrhage of fluid within the peritoneal cavity the liver was thought to be possibly cirrhotic. Objective - Vital Signs Vital signs: Vital Signs Temp 98.3 F 07/28/17 07:00 Pulse 76 07/28/17 07:00 Resp 16 07/28/17 07:00 BP 136/70 07/28/17 07:00 Pulse Ox 96 07/28/17 07:00 Intake & Output 07/27/17 07/28/17 07/28/17 18:59 06:59 18:59 Intake Total 400 240 Balance 400 240 Intake: Intake, IV Titration 400 Amount Piperacillin-Tazobactam 3 50 .375 gm In Dextrose/Water 1 50ml.bag @ 12.5 mls/hr IVPB Q8HR [facility] Rx#: [id number] Sodium Chloride 0.9% 1, 350 000 ml @ 50 mls/hr IV . Q20H [facility] Rx#:[id number] Oral 240 Other: Voiding Method Toilet Toilet Toilet Urinal Urinal Urinal # Voids 2 - Exam Physical exam 61-year-old male sitting up in bed pleasant cooperative oriented 3 Lungs adequate air movement bilaterally on room air Heart S1-S2 audible regular Abdomen firm distended significant purple bruising noted them umbilicus across the abdominal wall down few hypoactive bowel tones states no bowel movement bowel movement the day before no nausea no vomiting surgical dressing site dry Extremities plus edema to the bilateral lower extremities nonpitting - Labs CBC & Chem 7: 07/28/17 07:15 07/28/17 07:15 Labs: Abnormal Lab Results - Last 24 Hours (Table) 07/27/17 07/27/17 07/28/17 Range/Units 10:37 22:33 07:15 WBC 11.3 H (3.8-10.6) k/uL RBC 2.75 L 3.01 L (4.30-5.90) m/uL Hgb 7.5 L 7.7 L (13.0-17.5) gm/dL Hct 23.5 L 25.8 L (39.0-53.0) % MCHC 29.9 L (31.0-37.0) g/dL RDW 19.6 H 20.2 H (11.5-15.5) % Plt Count 67 L 69 L (150-450) k/uL Lymphocytes # (Manual) 0.40 L (1.0-4.8) k/uL Metamyelocytes # (Man) 0.71 H (0) k/uL Myelocytes # (Manual) 0.20 H (0) k/uL Nucleated RBCs 4 H (0-0) /100 WBC Chloride (98-107) mmol/L Carbon Dioxide (22-30) mmol/L BUN (9-20) mg/dL Creatinine (0.66-1.25) mg/dL Glucose (74-99) mg/dL Calcium (8.4-10.2) mg/dL Iron 53 L (65-175) ug/dL TIBC 213 L (228-460) ug/dL Ferritin 2992.1 H (22.0-322.0) ng/mL AST (17-59) U/L ALT (21-72) U/L Alkaline Phosphatase (38-126) U/L Total Protein (6.3-8.2) g/dL Albumin (3.5-5.0) g/dL 07/28/17 Range/Units 07:15 WBC (3.8-10.6) k/uL RBC (4.30-5.90) m/uL Hgb (13.0-17.5) gm/dL Hct (39.0-53.0) % MCHC (31.0-37.0) g/dL RDW (11.5-15.5) % Plt Count (150-450) k/uL Lymphocytes # (Manual) (1.0-4.8) k/uL Metamyelocytes # (Man) (0) k/uL Myelocytes # (Manual) (0) k/uL Nucleated RBCs (0-0) /100 WBC Chloride 114 H (98-107) mmol/L Carbon Dioxide 20 L (22-30) mmol/L BUN 31 H (9-20) mg/dL Creatinine 1.43 H (0.66-1.25) mg/dL Glucose 73 L (74-99) mg/dL Calcium 8.2 L (8.4-10.2) mg/dL Iron (65-175) ug/dL TIBC (228-460) ug/dL Ferritin (22.0-322.0) ng/mL AST 165 H (17-59) U/L ALT 77 H (21-72) U/L Alkaline Phosphatase 312 H (38-126) U/L Total Protein 4.8 L (6.3-8.2) g/dL Albumin 2.5 L (3.5-5.0) g/dL Microbiology - Last 24 Hours (Table) 07/23/17 10:40 Blood Culture - Preliminary Blood No Growth after 96 hours Assessment and Plan Assessment: Impression Present on admission abdominal pain right upper quadrant likely due to acute appendicitis History of prostate cancer chemoradiation treatment recent Status post laparoscopic appendectomy, laparoscopic liver biopsy did show some hemorrhagic fluid within the peritoneal cavity Laparoscopic showed liver likely cirrhotic Mildly elevated potassium 5.5 Acute on chronic renal failure creatinine up to 2.2 Mild protein calorie malnutrition Chronic constipation Acute on chronic blood loss anemia Symptomatic anemia tachycardic dizziness lightheadedness Anemia multifactorial secondary to bone marrow involvement, recent radiation, most likely acute blood loss Thrombocytopenia secondary to underlying liver disease with potential bone marrow involvement Plan Continue postop surgical care Monitor labs closely Follow up on the ultrasound of the abdomen pendin Colace as ordered Increase activity as tolerated DVT and GI prophylaxis The above impression and plan of care have been discussed and directed by signing physician. Abigali Miller nurse practitioner acting as scribe for signing physician.
--- NOTE | 2017-07-28 11:03 | P.PN ---
Subjective Progress Note Date: 07/28/17 Progress note being dictated for Dr. Haley Interval history: This is a 61-year-old gentleman admitted with abdominal pain status post laparoscopic appendectomy, status post liver biopsy, renal failure, metastatic prostatic cancer with bone metastasis and right pleural mass, liver cirrhosis and multiple other medical issues. Liver biopsy results pending. Currently denies abdominal pain, abdomen distended with large abdominal ecchymotic area ;outlined. Operative note reports hemorrhage of fluid within the peritoneal cavity with cirrhotic liver. Reports nausea, no emesis and diarrhea. Denies chest pain, palpitations or increasing shortness of breath. T bili 0.8, LFTs mildly elevated. Renal function improving, potassium 5.1. Afebrile, WBC 11. Platelets 69, hemoglobin 7.7. Objective - Vital Signs Vital signs: Vital Signs Temp 98.3 F 07/28/17 07:00 Pulse 76 07/28/17 07:00 Resp 16 07/28/17 07:00 BP 136/70 07/28/17 07:00 Pulse Ox 96 07/28/17 07:00 Intake & Output 07/27/17 07/28/17 07/28/17 18:59 06:59 18:59 Intake Total 400 240 Balance 400 240 Intake: Intake, IV Titration 400 Amount Piperacillin-Tazobactam 3 50 .375 gm In Dextrose/Water 1 50ml.bag @ 12.5 mls/hr IVPB Q8HR [facility] Rx#: [id number] Sodium Chloride 0.9% 1, 350 000 ml @ 50 mls/hr IV . Q20H [facility] Rx#:[id number] Oral 240 Other: Voiding Method Toilet Toilet Toilet Urinal Urinal Urinal # Voids 2 - Exam PHYSICAL EXAM: VITAL SIGNS: [As above] GENERAL: Eating up in bed, no acute distress HEENT: Conjunctivae normal. eyes normal. Oral mucosa moist NECK: No JVD. No thyroid enlargement. No LNs CARDIOVASCULAR: Regular S1, S2. No murmur RESPIRATION: Breath sounds diminished in the bases. No rhonchi or crackles. No wheezing,No bronchial breathing. ABDOMEN: Firm, distended, tender, large ecchymotic area including umbilical and lower abdominal wall ,outlined.hypoactive bowel sounds heard. LEGS: Positive edema, nonpitting. PSYCHIATRY: Alert and oriented -3, mood and affect normal. NERVOUS SYSTEM: Cranial N 2-12 grossly normal. Moves all 4 limbs. Diffuse weakness No focal deficits. Skin: no ulcer no rash Joints: No active swelling. No inflammation. Lymphatic system. No LN neck axilla or groin. - Labs CBC & Chem 7: 07/28/17 07:15 07/28/17 07:15 Labs: Abnormal Lab Results - Last 24 Hours (Table) 07/27/17 07/27/17 07/28/17 Range/Units 10:37 22:33 07:15 WBC 11.3 H (3.8-10.6) k/uL RBC 2.75 L 3.01 L (4.30-5.90) m/uL Hgb 7.5 L 7.7 L (13.0-17.5) gm/dL Hct 23.5 L 25.8 L (39.0-53.0) % MCHC 29.9 L (31.0-37.0) g/dL RDW 19.6 H 20.2 H (11.5-15.5) % Plt Count 67 L 69 L (150-450) k/uL Lymphocytes # (Manual) 0.40 L (1.0-4.8) k/uL Metamyelocytes # (Man) 0.71 H (0) k/uL Myelocytes # (Manual) 0.20 H (0) k/uL Nucleated RBCs 4 H (0-0) /100 WBC Chloride (98-107) mmol/L Carbon Dioxide (22-30) mmol/L BUN (9-20) mg/dL Creatinine (0.66-1.25) mg/dL Glucose (74-99) mg/dL Calcium (8.4-10.2) mg/dL Iron 53 L (65-175) ug/dL TIBC 213 L (228-460) ug/dL Ferritin 2992.1 H (22.0-322.0) ng/mL AST (17-59) U/L ALT (21-72) U/L Alkaline Phosphatase (38-126) U/L Total Protein (6.3-8.2) g/dL Albumin (3.5-5.0) g/dL 07/28/17 Range/Units 07:15 WBC (3.8-10.6) k/uL RBC (4.30-5.90) m/uL Hgb (13.0-17.5) gm/dL Hct (39.0-53.0) % MCHC (31.0-37.0) g/dL RDW (11.5-15.5) % Plt Count (150-450) k/uL Lymphocytes # (Manual) (1.0-4.8) k/uL Metamyelocytes # (Man) (0) k/uL Myelocytes # (Manual) (0) k/uL Nucleated RBCs (0-0) /100 WBC Chloride 114 H (98-107) mmol/L Carbon Dioxide 20 L (22-30) mmol/L BUN 31 H (9-20) mg/dL Creatinine 1.43 H (0.66-1.25) mg/dL Glucose 73 L (74-99) mg/dL Calcium 8.2 L (8.4-10.2) mg/dL Iron (65-175) ug/dL TIBC (228-460) ug/dL Ferritin (22.0-322.0) ng/mL AST 165 H (17-59) U/L ALT 77 H (21-72) U/L Alkaline Phosphatase 312 H (38-126) U/L Total Protein 4.8 L (6.3-8.2) g/dL Albumin 2.5 L (3.5-5.0) g/dL Microbiology - Last 24 Hours (Table) 07/23/17 10:40 Blood Culture - Preliminary Blood No Growth after 96 hours Assessment and Plan Assessment: 1. Abdominal pain with large ecchymotic area, distended, status post laparoscopic appendectomy, status post liver biopsy, results pending. 2. Non-oliguric acute renal failure secondary to ischemic acute tubular necrosis secondary to acute anemia 3. Metastatic prostatic cancer with bone metastasis and right pleural mass, elevated PSA 4. Liver cirrhosis secondary to EtOH abuse 5. Severe anemia of chronic disease versus postop, stable 6. Hyperkalemia secondary to hemolyzed is, improved 7. Mild protein calorie malnutrition 8. Thrombocytopenia secondary to liver cirrhosis, possible bone marrow involvement Plan: Continue on current medication regime ,monitoring and symptomatic treatment. Ultrasound of abdomen ordered, pending. Biopsy results pending. Follow closely with surgery. Complaining of diarrhea, Colace held. The impression and plan of care has been dictated as directed. : I performed a history and examination of this patient, discussed the same with the dictator. I agree with the dictator's note ,documented as a scribe. Any additional findings or plans will be noted.
[2017-07-28] MEDS: SODIUM CHLORIDE 0.9% 1,000 ML IV SCH (11:14)
[2017-07-28] MEDS: MULTIVITAMINS, THERA 1 EACH TAB PO SCH (11:33)
[2017-07-28 11:35] LABS: Band Neutrophils % 5 %; Metamyelocytes # (M) 0.45 k/uL (0); Metamyelocytes % 4 %; Myelocytes # (M) 0.34 k/uL (0); Myelocytes % 3 %; Neutrophils % (M) 69 %; Nucleated Red Blood Cells 1 /100 WBC (0-0); Total Cells Counted 200
[2017-07-28 11:41] LABS: Eosinophils # (M) 0.22 k/uL (0-0.7); Lymphocytes # (M) 1.23 k/uL (1.0-4.8); Monocytes # (M) 0.78 k/uL (0-1.0); WBC 11.2 k/uL (3.8-10.6)
--- NOTE | 2017-07-28 14:10 | US ---
EXAMINATION TYPE: US abdomen limited DATE OF EXAM: 07/28/2017 COMPARISON: CT dated 07/23/[address] 07/03/2017 CLINICAL HISTORY: distension. Recent appendectomy on Friday. Distension and bruising. Check for fluid. All four quadrants scanned. No free fluid seen. Incidental finding: Enlarged liver = 25.6 cm The liver shows heterogeneous echotexture IMPRESSION: Limited exam. No evident ascites. Hepatomegaly.
--- NOTE | 2017-07-28 14:56 | US ---
EXAMINATION TYPE: US venous doppler duplex LE RT DATE OF EXAM: 07/28/2017 2:10 PM COMPARISON: US 2017 CLINICAL HISTORY: unilateral swelling. Right leg swelling, patient on blood thinners SIDE PERFORMED: Right TECHNIQUE: The lower extremity deep venous system is examined utilizing real time linear array sonog lacie with graded compression, doppler sonography and color-flow sonography. VESSELS IMAGED: External Iliac Vein (EIV) Common Femoral Vein Deep Femoral Vein Greater Saphenous Vein * Femoral Vein Popliteal Vein Small Saphenous Vein * Proximal Calf Veins (* superficial vessels) Right Leg: Appears negative for DVT Grayscale, color doppler, spectral doppler imaging performed of the deep veins of the lower extremiti es. IMPRESSION: There is normal flow, compressibility, vascular waveforms. No evident deep venous thr ombosis at or above the right knee.
--- NOTE | 2017-07-28 16:49 | P.PN ---
Subjective Progress Note Date: 07/28/17 Principal diagnosis: Appendicitis,metastatic prostate cancer Pt seen today in follow up, s/p appendectomy and liver biopsy, pending biopsy results, denies fever, cough, appetite is poor, no current nausea or vomiting, his abd is distended, bruising noted, he denies hematuria, black ro bloody stool. He is weak and getting weaker. Objective - Vital Signs Vital signs: Vital Signs Temp 97.8 F 07/28/17 14:40 Pulse 108 H 07/28/17 14:40 Resp 16 07/28/17 14:40 BP 121/76 07/28/17 14:40 Pulse Ox 96 07/28/17 14:40 Intake & Output 07/27/17 07/28/17 07/28/17 18:59 06:59 18:59 Intake Total 400 240 Balance 400 240 Weight 77.111 kg Intake: Intake, IV Titration 400 Amount Piperacillin-Tazobactam 3 50 .375 gm In Dextrose/Water 1 50ml.bag @ 12.5 mls/hr IVPB Q8HR [facility] Rx#: [id number] Sodium Chloride 0.9% 1, 350 000 ml @ 50 mls/hr IV . Q20H [facility] Rx#:[id number] Oral 240 Other: Voiding Method Toilet Toilet Toilet Urinal Urinal Urinal # Voids 2 2 - Constitutional General appearance: Present: average body habitus, cooperative, mild distress - EENT Eyes: Present: anicteric sclerae, normal appearance - Respiratory Respiratory: bilateral: CTA - Cardiovascular Heart sounds: normal: S1, S2 - Peripheral edema leg Peripheral Edema: right: 1+, left: Trace - Gastrointestinal Gastrointestinal Comment(s): firm, no rigidity, mild discomfort, bruising note on entire lower abd General gastrointestinal: Present: distended - Neurologic Neurologic: Present: CNII-XII intact - Musculoskeletal Musculoskeletal: Present: generalized weakness - Psychiatric Psychiatric: Present: A&O x's 3, appropriate affect, intact judgment & insight - Labs CBC & Chem 7: 07/28/17 07:15 07/28/17 07:15 Labs: Abnormal Lab Results - Last 24 Hours (Table) 07/25/17 07/27/17 07/27/17 Range/Units 06:47 10:37 22:33 WBC (3.8-10.6) k/uL RBC 2.75 L (4.30-5.90) m/uL Hgb 7.5 L (13.0-17.5) gm/dL Hct 23.5 L (39.0-53.0) % MCHC (31.0-37.0) g/dL RDW 19.6 H (11.5-15.5) % Plt Count 67 L (150-450) k/uL Neutrophils # (Manual) (1.3-7.7) k/uL Lymphocytes # (Manual) 0.40 L (1.0-4.8) k/uL Metamyelocytes # (Man) 0.71 H (0) k/uL Myelocytes # (Manual) 0.20 H (0) k/uL Nucleated RBCs 4 H (0-0) /100 WBC Chloride (98-107) mmol/L Carbon Dioxide (22-30) mmol/L BUN (9-20) mg/dL Creatinine (0.66-1.25) mg/dL Glucose (74-99) mg/dL Calcium (8.4-10.2) mg/dL Iron 53 L (65-175) ug/dL TIBC 213 L (228-460) ug/dL Ferritin 2992.1 H (22.0-322.0) ng/mL AST (17-59) U/L ALT (21-72) U/L Alkaline Phosphatase (38-126) U/L Total Protein (6.3-8.2) g/dL Albumin (3.5-5.0) g/dL Total PSA >150.0 H (0.1 - 4.0) ng/mL 07/28/17 07/28/17 Range/Units 07:15 07:15 WBC 11.2 H (3.8-10.6) k/uL RBC 3.01 L (4.30-5.90) m/uL Hgb 7.7 L (13.0-17.5) gm/dL Hct 25.8 L (39.0-53.0) % MCHC 29.9 L (31.0-37.0) g/dL RDW 20.2 H (11.5-15.5) % Plt Count 69 L (150-450) k/uL Neutrophils # (Manual) 8.20 H (1.3-7.7) k/uL Lymphocytes # (Manual) (1.0-4.8) k/uL Metamyelocytes # (Man) 0.45 H (0) k/uL Myelocytes # (Manual) 0.34 H (0) k/uL Nucleated RBCs 1 H (0-0) /100 WBC Chloride 114 H (98-107) mmol/L Carbon Dioxide 20 L (22-30) mmol/L BUN 31 H (9-20) mg/dL Creatinine 1.43 H (0.66-1.25) mg/dL Glucose 73 L (74-99) mg/dL Calcium 8.2 L (8.4-10.2) mg/dL Iron (65-175) ug/dL TIBC (228-460) ug/dL Ferritin (22.0-322.0) ng/mL AST 165 H (17-59) U/L ALT 77 H (21-72) U/L Alkaline Phosphatase 312 H (38-126) U/L Total Protein 4.8 L (6.3-8.2) g/dL Albumin 2.5 L (3.5-5.0) g/dL Total PSA (0.1 - 4.0) ng/mL Microbiology - Last 24 Hours (Table) 07/23/17 10:40 Blood Culture - Preliminary Blood No Growth after 120 hours - Imaging and Cardiology US - abdomen: report reviewed MRI - head: report reviewed Assessment and Plan (1) Prostate cancer Narrative/Plan: Pending path results of appendix and liver biopsy. Most recent chemo was discontinued due to mixed results. Pt was going to be starting new regimen with jevtana after radiation for palliation of pain from bone mets. He is receiving bisphosphonate treatment for bone mets as well. final treatment plans to follow, will follow up in AM Current Visit: Yes Status: Chronic Priority: High Code(s): C61 - MALIGNANT NEOPLASM OF PROSTATE SNOMED Code(s): 939723873 (2) Bicytopenia Narrative/Plan: CBC stable, no acute intervention, CBC in AM Current Visit: Yes Status: Acute Priority: Medium Code(s): D75.89 - OTHER SPECIFIED DISEASES OF BLOOD AND BLOOD-FORMING ORGANS SNOMED Code(s): 798709309 Plan: US abd was done due to large ecchymosis on lower abd-report reviewed, no discussion of hemorrhage Doppler of RLE for swelling was negative for DVT
[2017-07-28] MEDS: MORPHINE SULFATE/PF 10MG/10ML VL IVP PRN ×2 (17:58→23:39)
[2017-07-28] MEDS: POLYETHYLENE GLYCOL 3350 17 GM POWD.PACK PO SCH (20:22)
[2017-07-29 07:34] VITALS: BP 134/70; PULSE 86; RESP 18; TEMP 98.2
[2017-07-29] MEDS: IPRATROPIUM-ALBUTEROL 3 ML NEB INHALATION SCH ×2 (07:34→11:20)
[2017-07-29] MEDS: PANTOPRAZOLE 40 MG/10 ML VIAL IV SCH (07:56)
[2017-07-29] MEDS: PIPERACILLIN-TAZOBACTAM 3.375 GM in DEXTROSE/WATER 1 50ML.BAG IVPB SCH (07:56)
[2017-07-29] MEDS: ALLOPURINOL 100 MG TAB PO SCH (07:57)
[2017-07-29] MEDS: DEXAMETHASONE 4 MG TAB PO SCH (07:57)
[2017-07-29] MEDS: CALCIUM CARB-VIT D 500MG-200UN 1 EACH TAB PO SCH (07:57)
[2017-07-29] MEDS: SODIUM BICARBONATE TAB 650 MG TAB PO SCH (07:57)
[2017-07-29 08:34] LABS: Anisocytosis Moderate; HCT 25.7 % (39.0-53.0); HGB 8.5 gm/dL (13.0-17.5); Hypochromasia Slight; MCH 27.7 pg (25.0-35.0); MCHC 32.9 g/dL (31.0-37.0); MCV 84.1 fL (80.0-100.0); Mean Platelet Volume 8.8; Microcytosis Slight; Platelet Count 71 k/uL (150-450); Poikilocytosis Slight; RBC 3.06 m/uL (4.30-5.90); RDW 20.1 % (11.5-15.5); WBC 11.5 k/uL (3.8-10.6)
[2017-07-29 08:46] LABS: Albumin 2.6 g/dL (3.5-5.0); Calcium 8.2 mg/dL (8.4-10.2); Potassium 4.9 mmol/L (3.5-5.1); Total Bilirubin 0.9 mg/dL (0.2-1.3); Total Protein 5.1 g/dL (6.3-8.2)
[2017-07-29 09:24] LABS: Band Neutrophils % 8 %; Eosinophils # (M) 0.35 k/uL (0-0.7); Lymphocytes # (M) 0.69 k/uL (1.0-4.8); Metamyelocytes # (M) 0.23 k/uL (0); Metamyelocytes % 2 %; Monocytes # (M) 0.69 k/uL (0-1.0); Myelocytes # (M) 0.58 k/uL (0); Myelocytes % 5 %; Neutrophils % (M) 71 %; Nucleated Red Blood Cells 0 /100 WBC (0-0); Total Cells Counted 200
--- NOTE | 2017-07-29 10:18 | P.PN ---
Subjective Patient is seen in follow-up for acute kidney injury. His baseline creatinine is 1 and was elevated at 2.27 on admission. It is stable at 1.46 today. Patient underwent appendectomy and liver biopsy in July 24. His hemoglobin was noted to be low at 6.9 on July 25 for which he did receive blood transfusion. Hemoglobin subsequently improved. He is currently resting in bed. Oral intake is improving. No melena or hematochezia. Edema is improved. He did receive 1 dose of Lasix yesterday. Vital signs are stable. General: The patient appeared well nourished and normally developed. HEENT: Head exam is unremarkable. Neck is without jugular venous distension. LUNGS: Lungs are clear to auscultation and percussion. Breath sounds decreased. HEART: Rate and Rhythm are regular. First and second heart sounds normal. No murmurs, rubs or gallops. ABDOMEN: Abdominal exam reveals normal bowel sounds. Non-tender and non- distended. No evidence of peritonitis. EXTREMITITES: No edema. Objective - Vital Signs Vital signs: Vital Signs Temp 98.2 F 07/29/17 07:00 Pulse 86 07/29/17 07:00 Resp 18 07/29/17 07:00 BP 134/70 07/29/17 07:00 Pulse Ox 96 07/29/17 07:00 Intake & Output 07/28/17 07/29/17 07/29/17 18:59 06:59 18:59 Intake Total 100 Balance 100 Weight 77.111 kg Intake: IV 100 Piperacillin-Tazobactam 3 100 .375 gm In Dextrose/Water 1 50ml.bag @ 12.5 mls/hr IVPB Q8HR [facility] Rx#: [id number] Other: Voiding Method Toilet Toilet Toilet Urinal Urinal Urinal # Voids 2 - Labs CBC & Chem 7: 07/29/17 07:35 07/29/17 07:35 Labs: Abnormal Lab Results - Last 24 Hours (Table) 07/25/17 07/28/17 07/29/17 Range/Units 06:47 07:15 07:35 WBC 11.2 H 11.5 H (3.8-10.6) k/uL RBC 3.06 L (4.30-5.90) m/uL Hgb 8.5 L (13.0-17.5) gm/dL Hct 25.7 L (39.0-53.0) % RDW 20.1 H (11.5-15.5) % Plt Count 71 L (150-450) k/uL Neutrophils # (Manual) 8.20 H 9.00 H (1.3-7.7) k/uL Lymphocytes # (Manual) 0.69 L (1.0-4.8) k/uL Metamyelocytes # (Man) 0.45 H 0.23 H (0) k/uL Myelocytes # (Manual) 0.34 H 0.58 H (0) k/uL Nucleated RBCs 1 H (0-0) /100 WBC Chloride (98-107) mmol/L BUN (9-20) mg/dL Creatinine (0.66-1.25) mg/dL Calcium (8.4-10.2) mg/dL AST (17-59) U/L ALT (21-72) U/L Alkaline Phosphatase (38-126) U/L Total Protein (6.3-8.2) g/dL Albumin (3.5-5.0) g/dL Total PSA >150.0 H (0.1 - 4.0) ng/mL 07/29/17 Range/Units 07:35 WBC (3.8-10.6) k/uL RBC (4.30-5.90) m/uL Hgb (13.0-17.5) gm/dL Hct (39.0-53.0) % RDW (11.5-15.5) % Plt Count (150-450) k/uL Neutrophils # (Manual) (1.3-7.7) k/uL Lymphocytes # (Manual) (1.0-4.8) k/uL Metamyelocytes # (Man) (0) k/uL Myelocytes # (Manual) (0) k/uL Nucleated RBCs (0-0) /100 WBC Chloride 110 H (98-107) mmol/L BUN 31 H (9-20) mg/dL Creatinine 1.46 H (0.66-1.25) mg/dL Calcium 8.2 L (8.4-10.2) mg/dL AST 178 H (17-59) U/L ALT 99 H (21-72) U/L Alkaline Phosphatase 327 H (38-126) U/L Total Protein 5.1 L (6.3-8.2) g/dL Albumin 2.6 L (3.5-5.0) g/dL Total PSA (0.1 - 4.0) ng/mL Microbiology - Last 24 Hours (Table) 07/23/17 10:40 Blood Culture - Preliminary Blood No Growth after 120 hours Assessment and Plan Plan: Assessment: #1. Nonoliguric acute kidney injury secondary to ischemic ATN secondary to acute anemia. Creatinine peaked at 2.27 and is stable at 1.46 today. Baseline creatinine is near 1. Urinalysis is relatively benign. No evidence of hydronephrosis noted on renal ultrasound. #2. Prostate cancer with metastatic disease to the bone being followed by oncology. #3. Acute blood loss anemia status post blood transfusion. Hemoglobin improved. #4. Acute appendicitis status post appendectomy and liver biopsy in July 24. Question of cirrhosis. #5. Hyperkalemia secondary to acute kidney injury and metabolic acidosis. Improved. #6. Hyperuricemia with rare uric acid crystals noted on the urinalysis. Need to monitor for urate nephropathy. #7. Metabolic acidosis secondary to acute kidney injury and IV fluids. Improved. Plan: Remains off all IVFs. Renal diet. Continue allopurinol 100 mg once daily. Maintain oral sodium bicarbonate 1300 mg twice daily. Avoid nephrotoxic agents and hypotensive episodes. Repeat electrolytes in the morning. No evidence of ascites noted on abdominal uls.
[2017-07-29] MEDS: MULTIVITAMINS, THERA 1 EACH TAB PO SCH (12:33)
--- NOTE | 2017-07-29 13:43 | P.DS ---
Providers Date of admission: 07/23/17 14:05 Expected date of discharge: 07/29/17 Attending physician: Quinten Matias Consults: 07/23/17 14:08 Consult Physician Stat Consulting Provider: Eduardo Carballo Consult Reason/Comments: appendicitis, prostate ca Do you want consulting provider notified?: Yes 07/23/17 18:46 Consult Physician Routine Consulting Provider: Shay Rm Consult Reason/Comments: medical management Do you want consulting provider notified?: Yes 07/25/17 14:33 Consult Physician Stat Consulting Provider: Lesli Crowell Consult Reason/Comments: Worsening of renal status Do you want consulting provider notified?: Yes Primary care physician: Santino Baker [facility] Course: 61-year-old presented to the emergency room on the day of admission with a complaint of having right upper quadrant abdominal pain workup showed evidence of an acute appendicitis. Patient does have history of prostate cancer. Diagnosed in 2011 cancer of the prostate with metastasis to the bone on July 24 underwent a laparoscopic appendectomy for acute appendicitis. Additionally laparoscopic liver biopsy was obtained for liver cirrhosis patient was followed throughout the hospitalization by oncology hematology, nephrology medical service. Patient did receive 1 unit of packed red blood cells on July 25 hemoglobin was down to 6.9. Patient was tachycardic dizzy and lightheaded. Patient did develop acute abdominal distention purple ecchymotic bruising noted to the abdominal wall from umbilicus down to the lower abdomen ultrasound of the abdomen showed probable hepatic metastasis no ascites Dopplers to the lower extremities were negative for no evidence of a DVT Patient was felt to be appropriate to proceed with a to home Impression discharge diagnosis Present on admission abdominal pain right upper quadrant likely due to acute appendicitis History of prostate cancer chemoradiation treatment recent Status post laparoscopic appendectomy, laparoscopic liver biopsy did show some hemorrhagic fluid within the peritoneal cavity Laparoscopic showed liver likely cirrhotic Mildly elevated potassium 5.5 secondary to acute kidney injury and metabolic acidosis improved Acute on chronic renal failure creatinine up to 2.2 Mild protein calorie malnutrition Chronic constipation Acute on chronic blood loss anemia Symptomatic anemia tachycardic dizziness lightheadedness Anemia multifactorial secondary to bone marrow involvement, recent radiation, most likely acute blood loss Thrombocytopenia secondary to underlying liver disease with potential bone marrow involvement Metabolic acidosis secondary to acute kidney injury and IV fluids improved Prostate cancer with metastasis disease to the bone The above impression and plan of care have been discussed and directed by signing physician. Abigail Miller nurse practitioner acting as scribe for signing physician. Patient Condition at Discharge: Stable Plan - Discharge Summary Discharge Rx Participant: Yes New Discharge Prescriptions: New HYDROcodone/APAP 5-325MG [Fosters 5-325] 2 each PO Q6HR PRN #30 tab PRN Reason: Moderate To Severe Pain Continue Multivitamins, Thera [Multivitamin (formulary)] 1 tab PO DAILY fentaNYL 25MCG/HR PATCH [Duragesic 25MCG/HR] 1 patch TRANSDERM Q72H Prochlorperazine [Compazine] 10 mg PO Q6H PRN PRN Reason: Nausea Naproxen Sodium [Aleve] 220 - 440 mg PO DAILY PRN PRN Reason: Pain Dexamethasone [Hexadrol] 4 mg PO TID Calcium Carbonate/Vitamin D3 [Caltrate 600 Plus D3 Tablet] 1 tab PO DAILY Acetaminophen Tab [Tylenol] 325 - 650 mg PO Q4H PRN PRN Reason: Pain Cyclobenzaprine [Flexeril] 5 mg PO TID PRN PRN Reason: Pain Discharge Medication List Multivitamins, Thera [Multivitamin (formulary)] 1 tab PO DAILY 07/03/17 [History ] Acetaminophen Tab [Tylenol] 325 - 650 mg PO Q4H PRN 07/23/17 [History] Calcium Carbonate/Vitamin D3 [Caltrate 600 Plus D3 Tablet] 1 tab PO DAILY [History] Cyclobenzaprine [Flexeril] 5 mg PO TID PRN 07/23/17 [History] Dexamethasone [Hexadrol] 4 mg PO TID 07/23/17 [History] Naproxen Sodium [Aleve] 220 - 440 mg PO DAILY PRN 07/23/17 [History] Prochlorperazine [Compazine] 10 mg PO Q6H PRN 07/23/17 [History] fentaNYL 25MCG/HR PATCH [Duragesic 25MCG/HR] 1 patch TRANSDERM Q72H 07/23/17 [ History] HYDROcodone/APAP 5-325MG [Fosters 5-325] 2 each PO Q6HR PRN #30 tab 07/29/17 [Rx] Follow up Appointment(s)/Referral(s): Shayna De MD [Primary Care Provider] - 1-2 days Quinten Matias MD [STAFF PHYSICIAN] - 1 Week Activity/Diet/Wound Care/Special Instructions: No tub bath for six weeks. Shower daily. No lifting over 10 pounds for the next 6 weeks. Avoid constipation use [id number] stool softeners. May use ice packs to surgical site. No driving while taking narcotic for pain. Discharge Disposition: HOME SELF-CARE
--- NOTE | 2017-07-29 16:03 | P.PN ---
Subjective Progress Note Date: 07/29/17 Principal diagnosis: Appendicitis,metastatic prostate cancer Pt seen today in follow up. He is just getting ready to eat lunch, denied nausea, his abd is still distended but not worse, no bleeding to report. Objective - Vital Signs Vital signs: Vital Signs Temp 98.2 F 07/29/17 07:00 Pulse 86 07/29/17 07:00 Resp 18 07/29/17 07:00 BP 134/70 07/29/17 07:00 Pulse Ox 96 07/29/17 07:00 Intake & Output 07/28/17 07/29/17 07/29/17 18:59 06:59 18:59 Intake Total 100 Balance 100 Weight 77.111 kg Intake: IV 100 Piperacillin-Tazobactam 3 100 .375 gm In Dextrose/Water 1 50ml.bag @ 12.5 mls/hr IVPB Q8HR [facility] Rx#: [id number] Other: Voiding Method Toilet Toilet Toilet Urinal Urinal Urinal # Voids 2 - Exam WD AAM sitting up in bed, no other family present, RN was at bedside, he is on NAD, A&O x 4, abd is visibly distended, mild BLE swelling - Labs CBC & Chem 7: 07/29/17 07:35 07/29/17 07:35 Labs: Abnormal Lab Results - Last 24 Hours (Table) 07/29/17 07/29/17 Range/Units 07:35 07:35 WBC 11.5 H (3.8-10.6) k/uL RBC 3.06 L (4.30-5.90) m/uL Hgb 8.5 L (13.0-17.5) gm/dL Hct 25.7 L (39.0-53.0) % RDW 20.1 H (11.5-15.5) % Plt Count 71 L (150-450) k/uL Neutrophils # (Manual) 9.00 H (1.3-7.7) k/uL Lymphocytes # (Manual) 0.69 L (1.0-4.8) k/uL Metamyelocytes # (Man) 0.23 H (0) k/uL Myelocytes # (Manual) 0.58 H (0) k/uL Chloride 110 H (98-107) mmol/L BUN 31 H (9-20) mg/dL Creatinine 1.46 H (0.66-1.25) mg/dL Calcium 8.2 L (8.4-10.2) mg/dL AST 178 H (17-59) U/L ALT 99 H (21-72) U/L Alkaline Phosphatase 327 H (38-126) U/L Total Protein 5.1 L (6.3-8.2) g/dL Albumin 2.6 L (3.5-5.0) g/dL Microbiology - Last 24 Hours (Table) 07/23/17 10:40 Blood Culture - Final Blood No Growth after 144 hours Assessment and Plan (1) Prostate cancer Narrative/Plan: We discussed pathology report of liver which is positive for metastatic prostate cancer. We discussed next treatment option and continuing on meds for bone mets, as well his lupron injections. Told pt we would contact him by the end of the week to see Dr. Carballo and start chemo. All his questions were answered to best of my ability. Status: Chronic Priority: High Code(s): C61 - MALIGNANT NEOPLASM OF PROSTATE SNOMED Code(s): 311062007 (2) Bicytopenia Narrative/Plan: Hgb and platelets are stable Status: Acute Priority: Medium Code(s): D75.89 - OTHER SPECIFIED DISEASES OF BLOOD AND BLOOD-FORMING ORGANS SNOMED Code(s): 408237244 Plan: US abd was done due to large ecchymosis on lower abd-report reviewed, no discussion of hemorrhage Doppler of RLE for swelling was negative for DVT Time with Patient: Greater than 30
--- NOTE | 2017-07-29 17:37 | P.PN ---
Subjective Progress Note Date: 07/29/17 Progress note being dictated for Dr. Haley Interval history: This is a 61-year-old gentleman admitted with abdominal pain status post laparoscopic appendectomy, status post liver biopsy, renal failure, metastatic prostatic cancer with bone metastasis and right pleural mass, liver cirrhosis and multiple other medical issues. Liver biopsy results pending. Currently denies abdominal pain, abdomen distended with large abdominal ecchymotic area ;outlined. Operative note reports hemorrhage of fluid within the peritoneal cavity with cirrhotic liver. Reports nausea, no emesis and diarrhea. Denies chest pain, palpitations or increasing shortness of breath. T bili 0.8, LFTs mildly elevated. Renal function improving, potassium 5.1. Afebrile, WBC 11. Platelets 69, hemoglobin 7.7. 07/29/2017 yesterday abdominal ultrasound performed with no reported bleeding, hepatomegaly. abdomen distended, unchanged; ecchymosis within the outlined area. Denies abdominal pain. Diet intake improving. Denies nausea, vomiting. No reported bleeding. Right leg negative for DVT. Edema improved. Liver biopsy pathology reporting positive for metastatic prostate cancer, which has been discussed with patient by oncology. Objective - Vital Signs Vital signs: Vital Signs Temp 98.2 F 07/29/17 07:00 Pulse 86 07/29/17 07:00 Resp 18 07/29/17 07:00 BP 134/70 07/29/17 07:00 Pulse Ox 96 07/29/17 07:00 Intake & Output 07/28/17 07/29/17 07/29/17 18:59 06:59 18:59 Intake Total 100 Balance 100 Weight 77.111 kg Intake: IV 100 Piperacillin-Tazobactam 3 100 .375 gm In Dextrose/Water 1 50ml.bag @ 12.5 mls/hr IVPB Q8HR [facility] Rx#: [id number] Other: Voiding Method Toilet Toilet Toilet Urinal Urinal Urinal # Voids 2 - Exam PHYSICAL EXAM: VITAL SIGNS: [As above] GENERAL: Sitting up at side of bed, no acute distress HEENT: Conjunctivae normal. eyes normal. Oral mucosa moist NECK: No JVD. No thyroid enlargement. No LNs CARDIOVASCULAR: Regular S1, S2. No murmur RESPIRATION: Breath sounds diminished in the bases. No rhonchi or crackles. No wheezing,No bronchial breathing. ABDOMEN: Firm, distended, nontender, large ecchymotic area including umbilical and lower abdominal wall ,outlined.positive bowel sounds heard. LEGS: Improving edema, nonpitting. PSYCHIATRY: Alert and oriented -3, mood and affect normal. NERVOUS SYSTEM: Cranial N 2-12 grossly normal. Moves all 4 limbs. Diffuse weakness No focal deficits. Skin: no ulcer no rash Joints: No active swelling. No inflammation. Lymphatic system. No LN neck axilla or groin. - Labs CBC & Chem 7: 07/29/17 07:35 07/29/17 07:35 Labs: Abnormal Lab Results - Last 24 Hours (Table) 07/29/17 07/29/17 Range/Units 07:35 07:35 WBC 11.5 H (3.8-10.6) k/uL RBC 3.06 L (4.30-5.90) m/uL Hgb 8.5 L (13.0-17.5) gm/dL Hct 25.7 L (39.0-53.0) % RDW 20.1 H (11.5-15.5) % Plt Count 71 L (150-450) k/uL Neutrophils # (Manual) 9.00 H (1.3-7.7) k/uL Lymphocytes # (Manual) 0.69 L (1.0-4.8) k/uL Metamyelocytes # (Man) 0.23 H (0) k/uL Myelocytes # (Manual) 0.58 H (0) k/uL Chloride 110 H (98-107) mmol/L BUN 31 H (9-20) mg/dL Creatinine 1.46 H (0.66-1.25) mg/dL Calcium 8.2 L (8.4-10.2) mg/dL AST 178 H (17-59) U/L ALT 99 H (21-72) U/L Alkaline Phosphatase 327 H (38-126) U/L Total Protein 5.1 L (6.3-8.2) g/dL Albumin 2.6 L (3.5-5.0) g/dL Microbiology - Last 24 Hours (Table) 07/23/17 10:40 Blood Culture - Final Blood No Growth after 144 hours Assessment and Plan Assessment: 1. Abdominal pain with large ecchymotic area, distended, status post laparoscopic appendectomy, status post liver biopsy,positive for metastatic prostate cancer 2. Non-oliguric acute renal failure secondary to ischemic acute tubular necrosis secondary to acute anemia 3. Metastatic prostatic cancer with bone metastasis and right pleural mass, elevated PSA 4. Liver cirrhosis secondary to EtOH abuse 5. Severe anemia of chronic disease versus postop, stable 6. Hyperkalemia secondary to hemolyzed is, improved 7. Mild protein calorie malnutrition 8. Thrombocytopenia secondary to liver cirrhosis, possible bone marrow involvement Plan: Continue on current medication regime ,monitoring and symptomatic treatment. Discharge planning in progress as per surgery. Further Oncology outpatient follow-up as advised per oncology. Follow with PCP in 3 days. Prognosis guarded given multiple complex medical issues. The impression and plan of care has been dictated as directed. : I performed a history and examination of this patient, discussed the same with the dictator. I agree with the dictator's note ,documented as a scribe. Any additional findings or plans will be noted.
== END 2017-07-29 15:10 | disposition home or self-care (01) | DRG 341 ==
LOC: EC 08:31 → 5ONC 14:05
PROVIDERS: ADMIT Surgery; ATTEND Surgery
PROC: 0DTJ4ZZ Resection of Appendix, Percutaneous Endoscopic Approach (ICD-10-PCS; principal; 2017-07-24 07:30)
PROC: 0FB04ZX Excision of Liver, Percutaneous Endoscopic Approach, Diagnostic (ICD-10-PCS; principal; 2017-07-24 07:30)
PROC: 30233N1 Transfusion of Nonautologous Red Blood Cells into Peripheral Vein, Percutaneous Approach (ICD-10-PCS; 2017-07-25)
DX: K35.80 Unspecified acute appendicitis (principal); N17.0 Acute kidney failure with tubular necrosis; C78.7 Secondary malignant neoplasm of liver and intrahepatic bile duct; C79.51 Secondary malignant neoplasm of bone; D69.59 Other secondary thrombocytopenia; D62 Acute posthemorrhagic anemia; E44.1 Mild protein-calorie malnutrition; E87.2 Acidosis; K56.7 Ileus, unspecified; C61 Malignant neoplasm of prostate; D50.0 Iron deficiency anemia secondary to blood loss (chronic); E78.5 Hyperlipidemia, unspecified; E87.5 Hyperkalemia; F10.10 Alcohol abuse, uncomplicated; F17.200 Nicotine dependence, unspecified, uncomplicated; G89.3 Neoplasm related pain (acute) (chronic); H91.91 Unspecified hearing loss, right ear; J44.9 Chronic obstructive pulmonary disease, unspecified; K21.9 Gastro-esophageal reflux disease without esophagitis; K70.30 Alcoholic cirrhosis of liver without ascites; N18.9 Chronic kidney disease, unspecified; Z80.0 Family history of malignant neoplasm of digestive organs; Z86.010 Personal history of colon polyps; Z92.3 Personal history of irradiation; Z79.899 Other long term (current) drug therapy
CPT/HCPCS: 36415; 71045; 74018; 74177; 76705; 76770; 80053; 81001; 81003; 82150; 82728; 83540; 83550; 83605; 83615; 83690; 83735; 84132; 84153; 84550; 85025; 85384; 85610; 85730; 86850; 86900; 86901; 86920; 87040; 88304; 88307; 88341; 88342; 94640; 94760; 96361; 96365; 96366; 96375; 96376; 99285

== ENCOUNTER 2017-08-31 15:07 | Inpatient (IN) | payer BC ==
[2017-08-31] MEDS ORDERED: MORPHINE SULFATE 4 MG/0.8 ML SYRINGE (INJ) IV STA (15:49)
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
[2017-08-31] MEDS ORDERED: MORPHINE SULFATE 4 MG/0.8 ML SYRINGE (INJ) IVP STA (16:00)
[2017-08-31 16:32] LABS: Anisocytosis Moderate; HCT 26.5 % (39.0-53.0); HGB 8.2 gm/dL (13.0-17.5); Hypochromasia Moderate; MCH 26.5 pg (25.0-35.0); MCHC 30.9 g/dL (31.0-37.0); MCV 85.6 fL (80.0-100.0); Mean Platelet Volume 7.6; Microcytosis Slight; Poikilocytosis Slight; RBC 3.09 m/uL (4.30-5.90); RDW 21.6 % (11.5-15.5)
[2017-08-31 16:40] LABS: Lactic Acid, Venous 1.5 mmol/L (0.7-2.0)
[2017-08-31 16:42] LABS: Albumin 3.1 g/dL (3.5-5.0); Calcium 8.9 mg/dL (8.4-10.2); Potassium 5.3 mmol/L (3.5-5.1); Total Bilirubin 1.4 mg/dL (0.2-1.3); Total Protein 5.4 g/dL (6.3-8.2)
[2017-08-31 16:50] LABS: INR 1.3 (<1.2); Partial Thromboplastin Time 22.5 sec (22.0-30.0); Prothrombin Time 12.4 sec (9.0-12.0)
--- NOTE | 2017-08-31 16:53 | XR ---
EXAMINATION TYPE: XR KUB DATE OF EXAM: 08/31/2017 4:44 PM CLINICAL HISTORY: Abdominal distention TECHNIQUE: Single supine KUB image of the abdomen is obtained. COMPARISON: None. FINDINGS: Nonspecific, nonobstructive, bowel gas pattern is identified. Calcifications are identified in the region of the left renal pelvis which are unchanged. Increased density is noted throughout the pelvis and direct: Lumbar spine consistent with previously described osteoblastic lesions. Lung bases appear unremarkable. IMPRESSION: Nonspecific bowel gas pattern.
[2017-08-31 17:01] LABS: Band Neutrophils % 15 %; Lymphocytes # (M) 2.77 k/uL (1.0-4.8); Metamyelocytes % 3 %; Neutrophils % (M) 59 %; Nucleated Red Blood Cells 11 /100 WBC (0-0); Total Cells Counted 200; WBC 13.2 k/uL (3.8-10.6)
[2017-08-31 17:02] LABS: Platelet Count 26 k/uL (150-450)
[2017-08-31] MEDS ORDERED: SODIUM CHLORIDE 0.9% 1,000 ML IV ONE (17:39)
[2017-08-31] MEDS ORDERED: CYCLOBENZAPRINE 5 MG TAB PO PRN (17:41)
[2017-08-31] MEDS ORDERED: ALPRAZolam 0.25 MG TAB PO PRN (17:41)
[2017-08-31] MEDS ORDERED: FUROSEMIDE 40 MG TAB PO PRN (17:41)
[2017-08-31] MEDS: HYDROcodone/APAP 5-325MG 1 EACH TAB PO PRN (21:38)
[2017-08-31] MEDS: DEXAMETHASONE 4 MG TAB PO SCH (22:12)
[2017-08-31] MEDS: LACTULOSE 20 GM/30 ML CUP PO SCH (22:12)
[2017-08-31 23:54] LABS: Appearance,Urine Turbid (Clear); Bilirubin,Urine Negative (Negative); Blood,Urine Moderate (Negative); Color,Urine Yellow; Glucose,Urine (UA) Negative (Negative); Ketones,Urine Negative (Negative); Leukocyte Esterase,Urine Negative (Negative); Nitrite,Urine Negative (Negative); PH, Urine 5.5 (5.0-8.0); Protein,Urine 1+ (Negative); RBC,Urine 50 /hpf (0-5); Specific Gravity,Urine 1.014 (1.001-1.035); Uric Acid Crystals,Urine Moderate /hpf; Urobilinogen,Urine <2.0 mg/dL (<2.0); WBC,Urine 4 /hpf (0-5)
[2017-09-01] MEDS: MORPHINE SULFATE 4 MG/0.8 ML SYRINGE (INJ) IV PRN ×2 (00:15→05:52)
[2017-09-01] MEDS: ENOXAPARIN 40 MG/0.4 ML SYRINGE SQ SCH (07:17)
[2017-09-01] MEDS: FAMOTIDINE 20 MG TAB PO SCH (07:18)
[2017-09-01] MEDS: DEXAMETHASONE 4 MG TAB PO SCH ×3 (07:18→21:48)
[2017-09-01] MEDS: LACTULOSE 20 GM/30 ML CUP PO SCH ×2 (07:18→21:48)
[2017-09-01] MEDS: VENLAFAXINE HCL 37.5 MG TAB PO SCH (07:19)
[2017-09-01] MEDS: MULTIVITAMINS, THERA 1 EACH TAB PO SCH (11:51)
[2017-09-01] MEDS: CALCIUM CARB-VIT D 500MG-200UN 1 EACH TAB PO SCH (11:51)
[2017-09-01] MEDS: HYDROcodone/APAP 5-325MG 1 EACH TAB PO PRN ×2 (12:00→17:52)
[2017-09-01 13:34] VITALS: BMI 25.1
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
[2017-09-01] MEDS: MORPHINE SULFATE 4 MG/ML SYRINGE IV PRN (19:25)
[2017-09-01 22:14] VITALS: RESP 18
[2017-09-02] MEDS: MORPHINE SULFATE 4 MG/ML SYRINGE IV PRN (06:23)
[2017-09-02] MEDS: DEXAMETHASONE 4 MG TAB PO SCH ×2 (09:19→16:34)
[2017-09-02] MEDS: ENOXAPARIN 40 MG/0.4 ML SYRINGE SQ SCH (09:19)
[2017-09-02] MEDS: FAMOTIDINE 20 MG TAB PO SCH (09:19)
[2017-09-02] MEDS: VENLAFAXINE HCL 37.5 MG TAB PO SCH (09:20)
[2017-09-02] MEDS: LACTULOSE 20 GM/30 ML CUP PO SCH (09:20)
[2017-09-02] MEDS ORDERED: MORPHINE ORAL SOLN 10 MG/5 ML CUP PO PRN (10:25)
[2017-09-02] MEDS: MULTIVITAMINS, THERA 1 EACH TAB PO SCH (11:14)
[2017-09-02] MEDS: CALCIUM CARB-VIT D 500MG-200UN 1 EACH TAB PO SCH (11:14)
--- NOTE | 2017-09-02 11:21 | P.PN ---
Subjective Progress Note Date: 09/02/17 Principal diagnosis: weakness, anorexia, intractable pain from malignancy Pt seen today in follow up, no one is at bedside. He denies nausea, hunger, need to go to the bathroom or uncontrolled pain Objective - Vital Signs Vital signs: Vital Signs Temp 97.4 F L 09/02/17 06:55 Pulse 72 09/02/17 06:55 Resp 18 09/02/17 06:55 BP 167/76 09/02/17 06:55 Pulse Ox 98 09/02/17 06:55 Intake & Output 09/01/17 09/02/17 09/02/17 18:59 06:59 18:59 Intake Total 1140 250 Balance 1140 250 Weight 81.647 kg Intake: Intake, IV Titration 600 Amount Sodium Chloride 0.9% 1, 600 000 ml @ 100 mls/hr IV . Q10H ONE Rx#:[id number] Oral 540 250 Other: Voiding Method Toilet Toilet Urinal Urinal Incontinent Incontinent # Voids 3 2 # Bowel Movements 2 - Exam Alert, pt stares forward, makes no eye contact, respirations are even and unlabored, CTA, S1S2, and distended, BS +, NAD, laying on bed with arms and legs crossed. - Labs CBC & Chem 7: 08/31/17 16:22 08/31/17 16:22 Assessment and Plan (1) Metastatic malignant neoplasm to prostate Current Visit: Yes Status: Chronic Priority: High Code(s): C79.82 - SECONDARY MALIGNANT NEOPLASM OF GENITAL ORGANS SNOMED Code(s): 40598147 (2) Anxiety about health Current Visit: Yes Status: Acute Priority: High Code(s): F41.8 - OTHER SPECIFIED ANXIETY DISORDERS SNOMED Code(s): 899226575 (3) Bicytopenia Current Visit: Yes Status: Chronic Priority: Medium Code(s): D75.89 - OTHER SPECIFIED DISEASES OF BLOOD AND BLOOD-FORMING ORGANS SNOMED Code(s): 607428003 Plan: Dr. Gates reviewed pt diagnosis, prognosis both with and without chemotherapy-if treatment is effective-side effects of chemo and concerns for pt ability to physically tolerate treatment. Pt was asked to decide if he wanted to pursue treatment or to pursue comfort he decided on hospice. Case discussed with Social Work and hospice confirmed. Pt ok to be discharged to care of hospice as soon as services in place. Symptom management ongoing, changes based on pt response and needs. Doctor attests: I performed a history and physical examination of this patient, discussed with dictator. I agree with dictators note, documented as a scribe.
[2017-09-02 15:28] VITALS: BP 158/76; PULSE 81; TEMP 97.8
--- NOTE | 2017-09-03 16:05 | P.DS ---
Providers Date of admission: 08/31/17 17:41 Expected date of discharge: 09/02/17 Attending physician: Eduardo Carballo Primary care physician: Santino Corral - Discharge Diagnosis(es) (1) Metastatic malignant neoplasm to prostate Status: Chronic Priority: High (2) Anxiety about health Status: Acute Priority: High (3) Bicytopenia Status: Chronic Priority: Medium Hospital Course: Pt admitted for malignancy related anorexia, weakness and pain. Decision was made by pt and family to pursue comfort measures and quality of life vs active cancer treatment. Pt is currently awaiting placement at hospice house and will be transitioned to inpatient respite care until bed is available. Pertinent Studies: none Procedures: none Patient Condition at Discharge: Poor Plan - Discharge Summary New Discharge Prescriptions: No Action Multivitamins, Thera [Multivitamin (formulary)] 1 tab PO DAILY fentaNYL 25MCG/HR PATCH [Duragesic 25MCG/HR] 1 patch TRANSDERM Q72H Dexamethasone [Hexadrol] 4 mg PO TID Calcium Carbonate/Vitamin D3 [Caltrate 600 Plus D3 Tablet] 1 tab PO DAILY Cyclobenzaprine [Flexeril] 5 mg PO TID PRN PRN Reason: Pain Ranitidine HCl 300 mg PO DAILY Furosemide [Lasix] 40 mg PO DAILY PRN PRN Reason: Edema HYDROcodone/APAP 5-325MG [[place] 5-325] 2 tab PO Q6HR PRN PRN Reason: Moderate To Severe Pain Lactulose [Cephulac] 30 gm PO BID #1800 ml ALPRAZolam [Xanax] 0.25 mg PO TID PRN #90 tab PRN Reason: Agitation Or Acute Anxiety Venlafaxine HCl [Effexor] 37.5 mg PO DAILY #60 tab Discharge Medication List Multivitamins, Thera [Multivitamin (formulary)] 1 tab PO DAILY 07/03/17 [History ] Calcium Carbonate/Vitamin D3 [Caltrate 600 Plus D3 Tablet] 1 tab PO DAILY [History] Cyclobenzaprine [Flexeril] 5 mg PO TID PRN 07/23/17 [History] Dexamethasone [Hexadrol] 4 mg PO TID 07/23/17 [History] fentaNYL 25MCG/HR PATCH [Duragesic 25MCG/HR] 1 patch TRANSDERM Q72H 07/23/17 [ History] Furosemide [Lasix] 40 mg PO DAILY PRN 08/20/17 [History] HYDROcodone/APAP 5-325MG [[place] 5-325] 2 tab PO Q6HR PRN 08/20/17 [History] Ranitidine HCl 300 mg PO DAILY 08/20/17 [History] ALPRAZolam [Xanax] 0.25 mg PO TID PRN #90 tab 08/25/17 [Rx] Lactulose [Cephulac] 30 gm PO BID #1800 ml 08/25/17 [Rx] Venlafaxine HCl [Effexor] 37.5 mg PO DAILY #60 tab 08/25/17 [Rx] Follow up Appointment(s)/Referral(s): Shayna De MD [Primary Care Provider] - 1-2 days Discharge Disposition: DISCH TO HOSPICE MED FACILTY Pending Studies Pending Results: none
== END 2017-09-02 20:25 | disposition hospice, inpatient (51) | DRG 948 ==
LOC: EC 15:07 → 5MS5E 17:41 → 5ONC 09-01 12:10
PROVIDERS: ADMIT Internal Medicine Hematology & Oncology; ATTEND Internal Medicine Hematology & Oncology
DX: G89.3 Neoplasm related pain (acute) (chronic) (principal); C78.7 Secondary malignant neoplasm of liver and intrahepatic bile duct; C79.51 Secondary malignant neoplasm of bone; C78.00 Secondary malignant neoplasm of unspecified lung; E44.1 Mild protein-calorie malnutrition; D69.6 Thrombocytopenia, unspecified; C61 Malignant neoplasm of prostate; Z66 Do not resuscitate; Z51.5 Encounter for palliative care; D64.9 Anemia, unspecified; F41.9 Anxiety disorder, unspecified; R62.7 Adult failure to thrive; K64.9 Unspecified hemorrhoids; R26.2 Difficulty in walking, not elsewhere classified; E78.5 Hyperlipidemia, unspecified; J44.9 Chronic obstructive pulmonary disease, unspecified; K21.9 Gastro-esophageal reflux disease without esophagitis; F17.210 Nicotine dependence, cigarettes, uncomplicated; Z68.25 Body mass index [BMI] 25.0-25.9, adult; Z79.899 Other long term (current) drug therapy; Z92.3 Personal history of irradiation; Z92.21 Personal history of antineoplastic chemotherapy; Z86.010 Personal history of colon polyps; Z80.0 Family history of malignant neoplasm of digestive organs
CPT/HCPCS: 36415; 74018; 80053; 81001; 82140; 82150; 83605; 83690; 85025; 85610; 85730; 96374; 99285

== ENCOUNTER 2017-09-02 20:37 | Inpatient (IN) | payer OTHER ==
[2017-09-02] MEDS ORDERED: ALPRAZolam 0.25 MG TAB PO PRN (21:13)
[2017-09-02] MEDS ORDERED: FUROSEMIDE 40 MG TAB PO PRN (21:15)
[2017-09-02] MEDS ORDERED: HYDROcodone/APAP 5-325MG 1 EACH TAB PO PRN (21:15)
[2017-09-02] MEDS ORDERED: CYCLOBENZAPRINE 5 MG TAB PO PRN (21:15)
[2017-09-02] MEDS ORDERED: MORPHINE ORAL SOL CONC 20 MG/ML BOTTLE PO PRN (21:18)
[2017-09-02 21:34] VITALS: BMI 25.1
[2017-09-02] MEDS: DEXAMETHASONE 4 MG TAB PO SCH (22:47)
[2017-09-03] MEDS: LACTULOSE 20 GM/30 ML CUP PO SCH ×2 (08:17→22:40)
[2017-09-03] MEDS: FAMOTIDINE 20 MG TAB PO SCH (08:19)
[2017-09-03] MEDS: DEXAMETHASONE 4 MG TAB PO SCH ×3 (08:19→22:40)
[2017-09-03] MEDS: VENLAFAXINE HCL 37.5 MG TAB PO SCH (08:19)
[2017-09-03] MEDS: MORPHINE ORAL SOLN 10 MG/5 ML CUP PO PRN ×2 (08:20→22:41)
[2017-09-03] MEDS: MULTIVITAMINS, THERA 1 EACH TAB PO SCH (11:18)
[2017-09-03] MEDS: CALCIUM CARB-VIT D 500MG-200UN 1 EACH TAB PO SCH (11:19)
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
[2017-09-04] MEDS: MORPHINE ORAL SOLN 10 MG/5 ML CUP PO PRN ×2 (07:43→11:59)
[2017-09-04] MEDS: FAMOTIDINE 20 MG TAB PO SCH (10:31)
[2017-09-04] MEDS: LACTULOSE 20 GM/30 ML CUP PO SCH (10:31)
[2017-09-04] MEDS: VENLAFAXINE HCL 37.5 MG TAB PO SCH (10:32)
[2017-09-04] MEDS: DEXAMETHASONE 4 MG TAB PO SCH (10:32)
[2017-09-04] MEDS: MULTIVITAMINS, THERA 1 EACH TAB PO SCH (11:57)
[2017-09-04] MEDS: CALCIUM CARB-VIT D 500MG-200UN 1 EACH TAB PO SCH (11:57)
--- NOTE | 2017-09-04 13:43 | P.PN ---
Subjective Progress Note Date: 09/04/17 Principal diagnosis: respite care, metastatic prostate adenocarcinoma Pt is seen with significant other at bedside. He is restless, not following commands or responding appropriately to questions. Objective - Vital Signs Vital signs: Intake & Output 09/03/17 09/04/17 09/04/17 18:59 06:59 18:59 Output Total 1 1 Balance -1 -1 Weight 81.647 kg Output: Stool 1 1 Other: Voiding Method Diaper Diaper Diaper Incontinent Incontinent Incontinent # Voids 1 1 # Bowel Movements 1 - Exam Thin, cachetic AA male, laying in bed, moving extremities without purpose, not responding to questions appropriately, respirations are unlabored, no retractions or nasal flaring. Assessment and Plan (1) Hospice care Narrative/Plan: Comfort measures under hospice care. Standing orders signed. As soon as bed available pt will be transferred to hospice house. Current Visit: Yes Status: Acute Priority: High Code(s): Z51.5 - ENCOUNTER FOR PALLIATIVE CARE SNOMED Code(s): 109705555 (2) Metastatic malignant neoplasm to prostate Current Visit: No Status: Chronic Priority: High Code(s): C79.82 - SECONDARY MALIGNANT NEOPLASM OF GENITAL ORGANS SNOMED Code(s): 17484650
--- NOTE | 2017-09-04 14:01 | P.DS ---
Providers Date of admission: 09/02/17 20:37 Expected date of discharge: 09/04/17 Attending physician: Eduardo Carballo Primary care physician: Santino Corral - Discharge Diagnosis(es) (1) Hospice care Current Visit: Yes Status: Acute Priority: High (2) Metastatic malignant neoplasm to prostate Current Visit: No Status: Chronic Priority: High Hospital Course: Pt admitted for respite while awaiting bed at hospice facility. Bed is now available and pt will be discharged to hospice care Pertinent Studies: none Procedures: none Patient Condition at Discharge: Poor Plan - Discharge Summary New Discharge Prescriptions: No Action Multivitamins, Thera [Multivitamin (formulary)] 1 tab PO DAILY fentaNYL 25MCG/HR PATCH [Duragesic 25MCG/HR] 1 patch TRANSDERM Q72H Dexamethasone [Hexadrol] 4 mg PO TID Calcium Carbonate/Vitamin D3 [Caltrate 600 Plus D3 Tablet] 1 tab PO DAILY Cyclobenzaprine [Flexeril] 5 mg PO TID PRN PRN Reason: Pain Ranitidine HCl 300 mg PO DAILY Furosemide [Lasix] 40 mg PO DAILY PRN PRN Reason: Edema HYDROcodone/APAP 5-325MG [[place] 5-325] 2 tab PO Q6HR PRN PRN Reason: Moderate To Severe Pain Lactulose [Cephulac] 30 gm PO BID #1800 ml ALPRAZolam [Xanax] 0.25 mg PO TID PRN #90 tab PRN Reason: Agitation Or Acute Anxiety Venlafaxine HCl [Effexor] 37.5 mg PO DAILY #60 tab Discharge Medication List Multivitamins, Thera [Multivitamin (formulary)] 1 tab PO DAILY 07/03/17 [History ] Calcium Carbonate/Vitamin D3 [Caltrate 600 Plus D3 Tablet] 1 tab PO DAILY [History] Cyclobenzaprine [Flexeril] 5 mg PO TID PRN 07/23/17 [History] Dexamethasone [Hexadrol] 4 mg PO TID 07/23/17 [History] fentaNYL 25MCG/HR PATCH [Duragesic 25MCG/HR] 1 patch TRANSDERM Q72H 07/23/17 [ History] Furosemide [Lasix] 40 mg PO DAILY PRN 08/20/17 [History] HYDROcodone/APAP 5-325MG [[place] 5-325] 2 tab PO Q6HR PRN 08/20/17 [History] Ranitidine HCl 300 mg PO DAILY 08/20/17 [History] ALPRAZolam [Xanax] 0.25 mg PO TID PRN #90 tab 08/25/17 [Rx] Lactulose [Cephulac] 30 gm PO BID #1800 ml 08/25/17 [Rx] Venlafaxine HCl [Effexor] 37.5 mg PO DAILY #60 tab 08/25/17 [Rx] Discharge Disposition: DISCH TO HOSPICE MED FACILTY Pending Studies Pending Results: none
== END 2017-09-04 14:30 | disposition hospice, inpatient (51) | DRG 951 ==
LOC: 5ONC 20:37
PROVIDERS: ADMIT Internal Medicine Hematology & Oncology; ATTEND Internal Medicine Hematology & Oncology
DX: Z51.5 Encounter for palliative care (principal); C78.7 Secondary malignant neoplasm of liver and intrahepatic bile duct; C79.82 Secondary malignant neoplasm of genital organs; E44.1 Mild protein-calorie malnutrition; C61 Malignant neoplasm of prostate; E78.5 Hyperlipidemia, unspecified; R32 Unspecified urinary incontinence; F17.210 Nicotine dependence, cigarettes, uncomplicated; J44.9 Chronic obstructive pulmonary disease, unspecified; K21.9 Gastro-esophageal reflux disease without esophagitis; K64.8 Other hemorrhoids; Z79.899 Other long term (current) drug therapy; Z86.010 Personal history of colon polyps; Z68.25 Body mass index [BMI] 25.0-25.9, adult; Z90.49 Acquired absence of other specified parts of digestive tract; Z90.79 Acquired absence of other genital organ(s); Z92.21 Personal history of antineoplastic chemotherapy; Z92.3 Personal history of irradiation; Z80.0 Family history of malignant neoplasm of digestive organs